=== PATIENT | male | born 1980 | race African-American/Black ===

== ENCOUNTER 2019-06-28 08:24 | Inpatient (IN) ==
[2019-06-28] MEDS ORDERED: amLODIPine 5 MG TABLET PO STA (09:00)
[2019-06-28] MEDS ORDERED: hydrALAZINE 20 MG/1 ML VIAL IV STA ×2 (09:00→09:58)
[2019-06-28 09:17] LABS: Basophils % 0.3 % (0.0-0.8); Eosinophils # 0.2 10*3/uL (0.0-0.87); Eosinophils % 1.9 % (0.00-10.9); Hematocrit 43.2 VOL% (42.0-52.0); Hemoglobin 13.9 GM/DL (14.0-18.0); Immature Granulocytes % 0.9 %; Immature Granulocytes Absolute 0.08 #; Lymphocytes # 1.9 10*3/uL (1.4-4.0); Mean Corpuscular HGB Conc 32.2 GM/DL (32-36); Mean Corpuscular Volume 81.2 FL (87-102); Monocytes % 7.2 % (1.7-12.7); Neutrophils % 67.7 % (38.7-73.9); Platelet Count 217 T/CUMM (130-400); Red Blood Count 5.32 MC/CUMM (3.8-5.5); Red Cell Distribution Width 14.7 % (9.3-17.3); White Blood Count 8.6 T/CUMM (4-12)
[2019-06-28 09:53] LABS: Calcium 8.5 MG/DL (8.5-10.1); Osmolality,Calculated 285.3 MOS/KG (273-304)
[2019-06-28] MEDS ORDERED: METOPROLOL TARTRATE 50 MG TABLET PO STA (09:58)
[2019-06-28] MEDS ORDERED: ONDANSETRON 4 MG/2 ML VIAL IV STA (10:47)
[2019-06-28] MEDS: niCARdipine INJ 25 MG in SODIUM CHLORIDE 0.9% 240 ML IV PRN (12:07)
[2019-06-28] MEDS ORDERED: ONDANSETRON 4 MG/2 ML VIAL IV PRN (13:42)
[2019-06-28] MEDS: FLUTICASONE 50 MCG NASAL SPRAY 16 GM BOTTLE BOTH NARES SCH ×2 (14:42→20:40)
[2019-06-28] MEDS: PANTOPRAZOLE 40 MG TABLET PO SCH (14:42)
[2019-06-28] MEDS: AMOXICILLIN/CLAV 875 MG TABLET PO SCH ×2 (14:42→20:40)
[2019-06-28] MEDS: POTASSIUM CHLORIDE 20 MEQ TABLET PO SCH ×3 (14:42→21:05)
[2019-06-28] MEDS: CHLORTHALIDONE 25 MG TABLET PO SCH (14:54)
[2019-06-28] MEDS: VALSARTAN 80 MG TABLET PO SCH ×2 (17:02→20:40)
[2019-06-28] MEDS: ENOXAPARIN 30 MG/0.3 ML SYRINGE SUBCUT SCH (20:40)
[2019-06-28] MEDS: niCARdipine INJ 50 MG in SODIUM CHLORIDE 0.9% 480 ML IV PRN (23:04)
[2019-06-29] MEDS: niCARdipine INJ 50 MG in SODIUM CHLORIDE 0.9% 480 ML IV PRN ×2 (00:23→09:30)
[2019-06-29] MEDS: POTASSIUM CHLORIDE 20 MEQ TABLET PO SCH (01:20)
[2019-06-29 04:45] LABS: Basophils % 0.2 % (0.0-0.8); Eosinophils # 0.1 10*3/uL (0.0-0.87); Eosinophils % 1.3 % (0.00-10.9); Hematocrit 45.8 VOL% (42.0-52.0); Hemoglobin 14.8 GM/DL (14.0-18.0); Immature Granulocytes % 0.9 %; Lymphocytes # 1.8 10*3/uL (1.4-4.0); Mean Corpuscular HGB Conc 32.3 GM/DL (32-36); Mean Corpuscular Volume 80.9 FL (87-102); Mean Platelet Volume 10.5 FL (9.6-12.0); Monocytes % 6.2 % (1.7-12.7); Neutrophils % 75.4 % (38.7-73.9); Platelet Count 259 T/CUMM (130-400); Red Blood Count 5.66 MC/CUMM (3.8-5.5); Red Cell Distribution Width 14.9 % (9.3-17.3); White Blood Count 11.1 T/CUMM (4-12)
[2019-06-29 05:12] LABS: Risk Ratio 6.62; Thyroid Stimulating Hormone 0.715 uIU/ml (0.358-3.74); VLDL CHOLESTEROL 55.6 MG/DL
[2019-06-29 05:22] LABS: Calcium 9.3 MG/DL (8.5-10.1); Osmolality,Calculated 276.8 MOS/KG (273-304); Troponin I 0.04 NG/ML (0.00-0.045)
[2019-06-29] MEDS: FLUTICASONE 50 MCG NASAL SPRAY 16 GM BOTTLE BOTH NARES SCH ×2 (09:31→20:42)
[2019-06-29] MEDS: CHLORTHALIDONE 25 MG TABLET PO SCH (09:32)
[2019-06-29] MEDS: AMOXICILLIN/CLAV 875 MG TABLET PO SCH ×2 (09:32→20:41)
[2019-06-29] MEDS: VALSARTAN 80 MG TABLET PO SCH ×2 (09:32→20:41)
[2019-06-29] MEDS: amLODIPine 5 MG TABLET PO SCH (09:32)
[2019-06-29] MEDS: PANTOPRAZOLE 40 MG TABLET PO SCH (09:32)
[2019-06-29] MEDS: POTASSIUM CHLORIDE RIDER 10 MEQ in PREMIX 1 EACH IV PRN ×5 (12:21→16:21)
[2019-06-29] MEDS: FUROSEMIDE 40 MG TABLET PO SCH (12:21)
[2019-06-29] MEDS: METOPROLOL TARTRATE 25 MG TABLET PO SCH ×2 (12:21→20:41)
[2019-06-29] MEDS ORDERED: FUROSEMIDE 40 MG/4 ML VIAL IV SCH (16:00)
[2019-06-29] MEDS: niCARdipine INJ 25 MG in SODIUM CHLORIDE 0.9% 240 ML IV PRN (18:21)
[2019-06-29] MEDS: ENOXAPARIN 30 MG/0.3 ML SYRINGE SUBCUT SCH (20:41)
[2019-06-29] MEDS: SIMVASTATIN 20 MG TABLET PO SCH (20:41)
[2019-06-30 04:21] LABS: Basophils % 0.3 % (0.0-0.8); Eosinophils # 0.3 10*3/uL (0.0-0.87); Eosinophils % 3.1 % (0.00-10.9); Hematocrit 46.3 VOL% (42.0-52.0); Hemoglobin 14.6 GM/DL (14.0-18.0); Immature Granulocytes % 1.2 %; Immature Granulocytes Absolute 0.11 #; Lymphocytes # 2.5 10*3/uL (1.4-4.0); Mean Corpuscular HGB Conc 31.5 GM/DL (32-36); Mean Corpuscular Volume 82.7 FL (87-102); Mean Platelet Volume 9.8 FL (9.6-12.0); Neutrophils % 59.4 % (38.7-73.9); Platelet Count 273 T/CUMM (130-400); Red Cell Distribution Width 14.9 % (9.3-17.3); White Blood Count 8.8 T/CUMM (4-12)
[2019-06-30 04:26] LABS: Albumin 2.8 G/DL (3.4-5.0); Bilirubin,Total 0.6 MG/DL (0.2-1.0); Calcium 9.3 MG/DL (8.5-10.1); Osmolality,Calculated 278.8 MOS/KG (273-304); Total Protein 7.3 G/DL (6.4-8.3)
[2019-06-30] MEDS: POTASSIUM CHLORIDE 20 MEQ TABLET PO PRN ×7 (05:35→22:32)
[2019-06-30] MEDS: AMOXICILLIN/CLAV 875 MG TABLET PO SCH ×2 (09:04→20:29)
[2019-06-30] MEDS: METOPROLOL TARTRATE 25 MG TABLET PO SCH (09:04)
[2019-06-30] MEDS: VALSARTAN 80 MG TABLET PO SCH (09:04)
[2019-06-30] MEDS: FUROSEMIDE 40 MG TABLET PO SCH (09:04)
[2019-06-30] MEDS: PANTOPRAZOLE 40 MG TABLET PO SCH (09:04)
[2019-06-30] MEDS: amLODIPine 5 MG TABLET PO SCH (09:04)
[2019-06-30] MEDS: FLUTICASONE 50 MCG NASAL SPRAY 16 GM BOTTLE BOTH NARES SCH ×2 (09:05→20:37)
[2019-06-30] MEDS: carvediloL 6.25 MG TABLET PO SCH ×2 (13:11→20:29)
[2019-06-30] MEDS: ENOXAPARIN 30 MG/0.3 ML SYRINGE SUBCUT SCH (20:29)
[2019-06-30] MEDS: SIMVASTATIN 20 MG TABLET PO SCH (20:37)
[2019-07-01 06:14] LABS: Calcium 9.7 MG/DL (8.5-10.1); Osmolality,Calculated 283.5 MOS/KG (273-304)
[2019-07-01] MEDS ORDERED: metOLazone 2.5 MG TABLET PO SCH (09:00)
[2019-07-01] MEDS: AMOXICILLIN/CLAV 875 MG TABLET PO SCH (09:12)
[2019-07-01] MEDS: FLUTICASONE 50 MCG NASAL SPRAY 16 GM BOTTLE BOTH NARES SCH (09:12)
[2019-07-01] MEDS: PANTOPRAZOLE 40 MG TABLET PO SCH (09:12)
[2019-07-01] MEDS: carvediloL 6.25 MG TABLET PO SCH (09:12)
[2019-07-01 12:00] VITALS: BP 128/94
[2019-07-01] MEDS ORDERED: ENOXAPARIN 40 MG/0.4 ML SYRINGE SUBCUT SCH (21:00)
== END 2019-07-01 17:33 | disposition home or self-care (01) | DRG 305 ==
LOC: N.ED 08:24 → SUATTDRO 12:27 → N.EDINP 12:27 → N.CC 12:58 → N.2E 06-30 14:26
PROVIDERS: ADMIT Internal Medicine; ATTEND Internal Medicine

== ENCOUNTER 2020-03-21 17:35 | Inpatient (IN) ==
[2020-03-21 19:33] LABS: Basophils % 0.3 % (0.0-0.8); Eosinophils # 0.2 10*3/uL (0.0-0.87); Eosinophils % 2.6 % (0.00-10.9); Hematocrit 22.4 VOL% (42.0-52.0); Hemoglobin 6.9 GM/DL (14.0-18.0); Immature Granulocytes % 0.7 %; Immature Granulocytes Absolute 0.05 #; Lymphocytes # 1.4 10*3/uL (1.4-4.0); Lymphocytes % 19.2 % (21.2-54.2); Mean Corpuscular HGB Conc 30.8 GM/DL (32-36); Mean Corpuscular Volume 80.9 FL (87-102); Mean Platelet Volume 11.4 FL (9.6-12.0); Monocytes % 7.8 % (1.7-12.7); Neutrophils % 69.4 % (38.7-73.9); Platelet Count 123 T/CUMM (130-400); Red Blood Count 2.77 MC/CUMM (3.8-5.5); Red Cell Distribution Width 16.1 % (9.3-17.3); White Blood Count 7.4 T/CUMM (4-12)
[2020-03-21 19:52] LABS: Albumin 3.5 G/DL (3.4-5.0); Calcium 9.4 MG/DL (8.5-10.1); Osmolality,Calculated 314.1 MOS/KG (273-304); Total Protein 7.6 G/DL (6.4-8.3)
[2020-03-21] MEDS: niCARdipine INJ 25 MG in SODIUM CHLORIDE 0.9% 240 ML IV PRN ×2 (19:55→22:05)
[2020-03-21 20:35] LABS: INR 1.1; PT Patient Result 11.6 SECS (9.8-11.9)
[2020-03-21] MEDS ORDERED: POTASSIUM CHLORIDE 20 MEQ TABLET PO STA (21:28)
[2020-03-21] MEDS ORDERED: FUROSEMIDE 100 MG/10 ML VIAL IV STA (22:46)
[2020-03-21 23:31] LABS: Hepatitis B Core IgM Quant 0.13 Index; Hepatitis B Surface Ag Quant < 0.10 Index; Hepatitis B Surface Ag Result Negative (Negative); Hepatitis C Virus Ab Quant 0.08 Index; Hepatitis C Virus Ab Result Negative (Negative)
[2020-03-22] MEDS ORDERED: ZALEPLON 5 MG CAPSULE PO PRN (01:06)
[2020-03-22] MEDS ORDERED: CALCIUM CARBONATE CHEW 500 MG TABLET PO PRN (01:06)
[2020-03-22] MEDS ORDERED: ONDANSETRON 4 MG/2 ML VIAL IV PRN (01:06)
[2020-03-22] MEDS: niCARdipine INJ 25 MG in SODIUM CHLORIDE 0.9% 240 ML IV PRN ×3 (01:21→09:06)
[2020-03-22] MEDS ORDERED: ENOXAPARIN 30 MG/0.3 ML SYRINGE SUBCUT SCH (02:00)
[2020-03-22] MEDS: metOLazone 2.5 MG TABLET PO SCH ×2 (02:12→08:31)
[2020-03-22 06:03] LABS: Basophils % 0.3 % (0.0-0.8); Eosinophils # 0.2 10*3/uL (0.0-0.87); Eosinophils % 2.5 % (0.00-10.9); Hematocrit 20.5 VOL% (42.0-52.0); Immature Granulocytes % 1.3 %; Lymphocytes # 1.4 10*3/uL (1.4-4.0); Lymphocytes % 18.6 % (21.2-54.2); Mean Corpuscular HGB Conc 30.7 GM/DL (32-36); Mean Corpuscular Volume 81.7 FL (87-102); Mean Platelet Volume 12.4 FL (9.6-12.0); Monocytes % 8.3 % (1.7-12.7); Platelet Count 137 T/CUMM (130-400); Red Blood Count 2.51 MC/CUMM (3.8-5.5); Red Cell Distribution Width 16.1 % (9.3-17.3); White Blood Count 7.7 T/CUMM (4-12)
[2020-03-22 06:06] LABS: Hemoglobin 6.3 GM/DL (14.0-18.0)
[2020-03-22 06:37] LABS: Calcium 9.2 MG/DL (8.5-10.1); Osmolality,Calculated 312.2 MOS/KG (273-304)
[2020-03-22] MEDS ORDERED: EPOETIN ALFA-EPBX 10,000 UNIT/ML VIAL IV PRN (08:25)
[2020-03-22] MEDS: carvediloL 6.25 MG TABLET PO SCH ×2 (08:31→17:41)
[2020-03-22] MEDS: PANTOPRAZOLE 40 MG TABLET PO SCH (08:31)
[2020-03-22] MEDS ORDERED: ceFAZolin 1,000 MG in SYRINGE 1 EACH IV ONE (08:58)
[2020-03-22] MEDS: SIMVASTATIN 20 MG TABLET PO SCH (22:53)
[2020-03-23 06:34] LABS: Basophils % 0.5 % (0.0-0.8); Eosinophils # 0.2 10*3/uL (0.0-0.87); Eosinophils % 2.7 % (0.00-10.9); Hematocrit 19.9 VOL% (42.0-52.0); Immature Granulocytes % 1.3 %; Lymphocytes # 1.8 10*3/uL (1.4-4.0); Lymphocytes % 22.7 % (21.2-54.2); Mean Corpuscular HGB Conc 30.2 GM/DL (32-36); Mean Corpuscular Volume 82.9 FL (87-102); Mean Platelet Volume 11.5 FL (9.6-12.0); Monocytes % 5.4 % (1.7-12.7); Neutrophils % 67.4 % (38.7-73.9); Platelet Count 194 T/CUMM (130-400); Red Cell Distribution Width 16.3 % (9.3-17.3); White Blood Count 7.8 T/CUMM (4-12)
[2020-03-23] MEDS ORDERED: HEPARIN 5,000 UNIT/1 ML VIAL ONE (06:47)
[2020-03-23] MEDS ORDERED: LIDOCAINE 1%/EPI INJ 20 ML VIAL ONE (06:47)
[2020-03-23] MEDS ORDERED: TISSUE ADHESIVE 1 EACH APPLICATOR TOP ONE (06:47)
[2020-03-23] MEDS ORDERED: BUPIVACAINE MPF 0.25% 30 ML VIAL ONE (06:47)
[2020-03-23] MEDS ORDERED: SODIUM CHLORIDE 0.9% 1,000 ML IV PRN (06:52)
[2020-03-23] MEDS ORDERED: ceFAZolin 1,000 MG in SYRINGE 1 EACH IV ONE (07:00)
[2020-03-23 07:12] LABS: Calcium 8.9 MG/DL (8.5-10.1); Osmolality,Calculated 310.5 MOS/KG (273-304)
[2020-03-23] MEDS: carvediloL 6.25 MG TABLET PO SCH ×2 (09:10→17:16)
[2020-03-23] MEDS: PANTOPRAZOLE 40 MG TABLET PO SCH (09:35)
[2020-03-23] MEDS: metOLazone 2.5 MG TABLET PO SCH (09:35)
[2020-03-23] MEDS ORDERED: MIDAZOLAM 2 MG/2 ML VIAL ONE (11:11)
[2020-03-23] MEDS ORDERED: SODIUM CHLORIDE 0.9% 250 ML IV ONE (11:11)
[2020-03-23] MEDS ORDERED: HEPARIN 10,000 UNIT/10 ML VIAL IV SCH ×2 (11:30→13:45)
[2020-03-23] MEDS: SIMVASTATIN 20 MG TABLET PO SCH (20:00)
[2020-03-24] MEDS: PANTOPRAZOLE 40 MG TABLET PO SCH (08:08)
[2020-03-24] MEDS: carvediloL 6.25 MG TABLET PO SCH ×2 (08:08→17:57)
[2020-03-24] MEDS: metOLazone 2.5 MG TABLET PO SCH (08:08)
[2020-03-24 10:18] LABS: Basophils % 0.2 % (0.0-0.8); Eosinophils # 0.3 10*3/uL (0.0-0.87); Eosinophils % 2.9 % (0.00-10.9); Hematocrit 24.1 VOL% (42.0-52.0); Hemoglobin 7.4 GM/DL (14.0-18.0); Immature Granulocytes % 2.8 %; Immature Granulocytes Absolute 0.29 #; Lymphocytes # 1.4 10*3/uL (1.4-4.0); Lymphocytes % 13.8 % (21.2-54.2); Mean Corpuscular HGB Conc 30.7 GM/DL (32-36); Mean Corpuscular Volume 83.4 FL (87-102); Mean Platelet Volume 11.6 FL (9.6-12.0); Monocytes % 7.9 % (1.7-12.7); NRBC # 0.04 10*3/uL; Neutrophils % 72.4 % (38.7-73.9); Platelet Count 236 T/CUMM (130-400); Red Blood Count 2.89 MC/CUMM (3.8-5.5); White Blood Count 10.2 T/CUMM (4-12)
[2020-03-24 11:44] LABS: Osmolality,Calculated 297.4 MOS/KG (273-304)
[2020-03-24 15:23] LABS: Apearance,Urine Slightly Hazy (Clear); Bacteria,Urine Occasional /HPF (Few); Bilirubin,Urine Negative (Negative); Blood, Urine Negative (Negative); Glucose,Urine (UA) Negative (Negative); Ketones,Urine Negative (Negative); Mucus,Urine Occasional /LPF (Occasional); Nitrite,Urine Negative (Negative); Protein,Urine 100 MG/DL; RBC,Urine 2 /HPF (0-4); Squamous Epithelial Cell,Urine Occasional /HPF (0-10); Urine Color Yellow (Yellow); Urine Specific Gravity 1.011 (1.001-1.035); Urine Urobilinogen < 2.0 EU/DL (0.2-1.0); WBC,Urine 4 /HPF (0-6)
[2020-03-24] MEDS: SIMVASTATIN 20 MG TABLET PO SCH (20:42)
[2020-03-25] MEDS ORDERED: SIMETHICONE CHEW 80 MG TABLET PO PRN (01:56)
[2020-03-25 05:54] LABS: Basophils % 0.3 % (0.0-0.8); Eosinophils # 0.3 10*3/uL (0.0-0.87); Eosinophils % 2.9 % (0.00-10.9); Hematocrit 25.5 VOL% (42.0-52.0); Hemoglobin 7.6 GM/DL (14.0-18.0); Lymphocytes # 1.3 10*3/uL (1.4-4.0); Lymphocytes % 12.6 % (21.2-54.2); Mean Corpuscular HGB Conc 29.8 GM/DL (32-36); Mean Corpuscular Volume 85.9 FL (87-102); Mean Platelet Volume 11.1 FL (9.6-12.0); Monocytes % 8.2 % (1.7-12.7); NRBC # 0.11 10*3/uL; Platelet Count 251 T/CUMM (130-400); Red Blood Count 2.97 MC/CUMM (3.8-5.5); Red Cell Distribution Width 16.3 % (9.3-17.3); White Blood Count 10.2 T/CUMM (4-12)
[2020-03-25 06:22] LABS: Calcium 9.4 MG/DL (8.5-10.1); Osmolality,Calculated 287.7 MOS/KG (273-304)
[2020-03-25] MEDS: PANTOPRAZOLE 40 MG TABLET PO SCH (13:42)
[2020-03-25] MEDS: BISACODYL 5 MG TABLET PO ONE ×2 (13:42→14:57)
[2020-03-25] MEDS: metOLazone 2.5 MG TABLET PO SCH (13:42)
[2020-03-25] MEDS: carvediloL 6.25 MG TABLET PO SCH ×2 (13:42→17:24)
[2020-03-25] MEDS ORDERED: LACTULOSE 20 GM/30 ML UDCUP PO ONE (13:45)
[2020-03-25 16:59] VITALS: BP 166/98
== END 2020-03-25 17:23 | disposition home health service (06) | DRG 291 ==
LOC: SUATTDRO → N.ED 17:35 → SUATTDRO 22:00 → N.EDINP 22:00 → SUPCPDRO 22:00 → N.ICU 03-22 01:01 → N.3E 03-24 16:33
PROVIDERS: ADMIT Internal Medicine; ATTEND Family Medicine

== ENCOUNTER 2020-04-18 11:02 | Observation (INO) ==
[2020-04-18 12:22] LABS: Basophils % 0.6 % (0.0-0.8); Eosinophils # 0.3 10*3/uL (0.0-0.87); Eosinophils % 4.2 % (0.00-10.9); Hematocrit 27.6 VOL% (42.0-52.0); Hemoglobin 8.3 GM/DL (14.0-18.0); Immature Granulocytes % 0.3 %; Immature Granulocytes Absolute 0.02 #; Lymphocytes # 1.7 10*3/uL (1.4-4.0); Lymphocytes % 23.2 % (21.2-54.2); Mean Corpuscular HGB Conc 30.1 GM/DL (32-36); Mean Corpuscular Volume 83.9 FL (87-102); Mean Platelet Volume 9.4 FL (9.6-12.0); Monocytes % 6.6 % (1.7-12.7); Neutrophils % 65.1 % (38.7-73.9); Platelet Count 338 T/CUMM (130-400); Red Blood Count 3.29 MC/CUMM (3.8-5.5); Red Cell Distribution Width 14.2 % (9.3-17.3); White Blood Count 7.1 T/CUMM (4-12)
[2020-04-18] MEDS ORDERED: hydrALAZINE 20 MG/1 ML VIAL IV STA ×2 (12:33→14:05)
[2020-04-18 13:05] LABS: Alanine Aminotransferase 19 U/L (16-61); Alkaline Phosphatase 55 U/L (45-117); Aspartate Amino Transferase 12 U/L (0-37); Bilirubin,Total < 0.39 MG/DL (0.2-1.0); Blood Urea Nitrogen 79 MG/DL (7-18); Calcium 9.9 MG/DL (8.5-10.1); Estimated Glom Filtration Rate 6 ML/MIN; Glucose 85 MG/DL (74-106); Osmolality,Calculated 297.7 MOS/KG (273-304); Total Protein 8.3 G/DL (6.4-8.3)
[2020-04-18] MEDS ORDERED: LABETALOL 20 MG/4 ML SYRINGE IV STA (14:37)
[2020-04-18] MEDS ORDERED: ONDANSETRON 4 MG/2 ML VIAL IV PRN (15:44)
[2020-04-18] MEDS ORDERED: DEXTROSE 10% 250 ML BAG IV PRN (15:44)
[2020-04-18] MEDS ORDERED: GLUCAGON 1 MG VIAL IM PRN (15:44)
[2020-04-18] MEDS ORDERED: EPOETIN ALFA-EPBX 10,000 UNIT/ML VIAL IV PRN (17:02)
[2020-04-18] MEDS ORDERED: CALCIUM CARBONATE CHEW 500 MG TABLET PO PRN (17:02)
[2020-04-18] MEDS: hydrALAZINE 20 MG/1 ML VIAL IV PRN (19:00)
[2020-04-18] MEDS: ACETAMINOPHEN 325 MG TABLET PO PRN (20:20)
[2020-04-18] MEDS: carvediloL 6.25 MG TABLET PO SCH (20:20)
[2020-04-18] MEDS: SIMVASTATIN 20 MG TABLET PO SCH (20:20)
[2020-04-19] MEDS: ACETAMINOPHEN 325 MG TABLET PO PRN ×3 (01:16→17:20)
[2020-04-19 06:19] LABS: Basophils % 0.4 % (0.0-0.8); Eosinophils # 0.3 10*3/uL (0.0-0.87); Eosinophils % 3.8 % (0.00-10.9); Hemoglobin 8.2 GM/DL (14.0-18.0); Immature Granulocytes % 0.3 %; Immature Granulocytes Absolute 0.02 #; Lymphocytes # 1.3 10*3/uL (1.4-4.0); Lymphocytes % 17.1 % (21.2-54.2); Mean Corpuscular HGB Conc 30.4 GM/DL (32-36); Mean Corpuscular Volume 82.8 FL (87-102); Neutrophils % 71.4 % (38.7-73.9); Platelet Count 322 T/CUMM (130-400); Red Blood Count 3.26 MC/CUMM (3.8-5.5); Red Cell Distribution Width 14.5 % (9.3-17.3); White Blood Count 7.5 T/CUMM (4-12)
[2020-04-19] MEDS: hydrALAZINE 20 MG/1 ML VIAL IV PRN ×2 (06:32→12:30)
[2020-04-19 06:39] LABS: Calcium 10.2 MG/DL (8.5-10.1)
[2020-04-19] MEDS: PANTOPRAZOLE 20 MG TABLET PO SCH (09:20)
[2020-04-19] MEDS: metOLazone 2.5 MG TABLET PO SCH (09:20)
[2020-04-19] MEDS: carvediloL 6.25 MG TABLET PO SCH ×2 (09:20→17:20)
[2020-04-19] MEDS ORDERED: HEPARIN 10,000 UNIT/10 ML VIAL IV SCH (14:45)
[2020-04-19] MEDS ORDERED: ALTEPLASE 2 MG VIAL IV ONE ×2 (15:00)
[2020-04-19] MEDS: SIMVASTATIN 20 MG TABLET PO SCH (21:13)
[2020-04-20 06:06] LABS: Basophils % 0.4 % (0.0-0.8); Eosinophils # 0.2 10*3/uL (0.0-0.87); Eosinophils % 2.9 % (0.00-10.9); Hematocrit 30.1 VOL% (42.0-52.0); Hemoglobin 9.1 GM/DL (14.0-18.0); Immature Granulocytes % 0.5 %; Immature Granulocytes Absolute 0.04 #; Lymphocytes # 1.5 10*3/uL (1.4-4.0); Lymphocytes % 18.5 % (21.2-54.2); Mean Corpuscular HGB Conc 30.2 GM/DL (32-36); Mean Corpuscular Volume 83.4 FL (87-102); Mean Platelet Volume 9.4 FL (9.6-12.0); Monocytes % 6.8 % (1.7-12.7); Neutrophils % 70.9 % (38.7-73.9); Platelet Count 336 T/CUMM (130-400); Red Blood Count 3.61 MC/CUMM (3.8-5.5); Red Cell Distribution Width 14.6 % (9.3-17.3); White Blood Count 8.2 T/CUMM (4-12)
[2020-04-20 06:15] LABS: Calcium 10.1 MG/DL (8.5-10.1); Osmolality,Calculated 294.1 MOS/KG (273-304)
[2020-04-20] MEDS ORDERED: SODIUM CHLORIDE 0.9% 250 ML IV SCH (07:00)
[2020-04-20] MEDS ORDERED: ceFAZolin 1,000 MG VIAL ONE (07:38)
[2020-04-20] MEDS ORDERED: propofoL 200 MG/20 ML VIAL IV ONE (08:07)
[2020-04-20] MEDS ORDERED: ONDANSETRON 4 MG/2 ML VIAL ONE (08:08)
[2020-04-20] MEDS ORDERED: DEXAMETHASONE 4 MG/1 ML VIAL ONE (08:08)
[2020-04-20] MEDS ORDERED: SEVOFLURANE 1 UNIT/15 MINUTE INH ONE (08:08)
[2020-04-20] MEDS ORDERED: MIDAZOLAM 2 MG/2 ML VIAL ONE (08:08)
[2020-04-20] MEDS ORDERED: fentaNYL 100 MCG/2 ML VIAL ONE (08:08)
[2020-04-20] MEDS ORDERED: LIDOCAINE 2% 5 ML VIAL ONE (08:08)
[2020-04-20 08:56] VITALS: BP 157/90
[2020-04-20] MEDS: PANTOPRAZOLE 20 MG TABLET PO SCH (13:56)
[2020-04-20] MEDS: metOLazone 2.5 MG TABLET PO SCH (13:56)
[2020-04-20] MEDS: carvediloL 6.25 MG TABLET PO SCH (13:56)
[2020-04-21] MEDS ORDERED: ceFAZolin 1,000 MG in SYRINGE 1 EACH IV ONE (06:30)
== END 2020-04-20 15:15 | disposition home or self-care (01) ==
LOC: N.ED 11:02 → N.EDINP 11:02 → N.3E 17:39
PROVIDERS: ADMIT Internal Medicine; ATTEND Internal Medicine

== ENCOUNTER 2020-12-28 06:12 | Observation (INO) ==
[2020-12-23 12:26] LABS: Basophils % 0.3 % (0.0-0.8); Eosinophils # 0.1 10*3/uL (0.0-0.87); Eosinophils % 1.7 % (0.00-10.9); Hematocrit 32.6 VOL% (42.0-52.0); Hemoglobin 10.7 GM/DL (14.0-18.0); Immature Granulocytes % 0.8 %; Immature Granulocytes Absolute 0.06 #; Lymphocytes # 1.9 10*3/uL (1.4-4.0); Lymphocytes % 23.7 % (21.2-54.2); Mean Corpuscular HGB Conc 32.8 GM/DL (32-36); Mean Corpuscular Volume 84.9 FL (87-102); Mean Platelet Volume 9.7 FL (9.6-12.0); Monocytes % 8.1 % (1.7-12.7); Neutrophils % 65.4 % (38.7-73.9); Platelet Count 291 T/CUMM (130-400); Red Blood Count 3.84 MC/CUMM (3.8-5.5); White Blood Count 7.8 T/CUMM (4-12)
[2020-12-23 13:02] LABS: Calcium 10.3 MG/DL (8.5-10.1); Osmolality,Calculated 285.8 MOS/KG (273-304); Potassium 3.6 MMOL/L (3.5-5.1)
[2020-12-28] MEDS ORDERED: ceFAZolin 1,000 MG in SYRINGE 1 EACH IV ONE (06:30)
[2020-12-28 06:44] LABS: Hematocrit 32.5 VOL% (42.0-52.0); Hemoglobin 10.6 GM/DL (14.0-18.0)
[2020-12-28] MEDS ORDERED: FAMOTIDINE 20 MG TABLET PO ONE (06:55)
[2020-12-28] MEDS ORDERED: DIAZEPAM 5 MG TABLET PO ONE (06:55)
[2020-12-28] MEDS ORDERED: SODIUM CHLORIDE 0.9% 250 ML IV SCH (07:00)
[2020-12-28] MEDS ORDERED: BUPIVACAINE MPF 0.25% 30 ML VIAL ONE (14:02)
[2020-12-28] MEDS ORDERED: TISSUE ADHESIVE 1 EACH APPLICATOR TOP ONE (14:02)
[2020-12-28] MEDS ORDERED: LIDOCAINE 1% 20 ML VIAL ONE (14:02)
[2020-12-28] MEDS ORDERED: fentaNYL 100 MCG/2 ML VIAL ONE ×2 (14:08→15:04)
[2020-12-28] MEDS ORDERED: MIDAZOLAM 2 MG/2 ML VIAL ONE (14:09)
[2020-12-28] MEDS ORDERED: SEVOFLURANE 1 UNIT/15 MINUTE INH ONE ×8 (14:11→16:30)
[2020-12-28] MEDS ORDERED: ROCURONIUM 50 MG/5 ML VIAL IV ONE (14:14)
[2020-12-28] MEDS ORDERED: ONDANSETRON 4 MG/2 ML VIAL ONE (14:14)
[2020-12-28] MEDS ORDERED: LIDOCAINE 2% 5 ML VIAL ONE (14:14)
[2020-12-28] MEDS ORDERED: propofoL 200 MG/20 ML VIAL IV ONE (14:14)
[2020-12-28] MEDS ORDERED: SUCCINYLCHOLINE 200 MG/10 ML VIAL ONE (14:29)
[2020-12-28] MEDS ORDERED: PHENYLEPHRINE 1 MG/10 ML SYRINGE IV ONE (15:12)
[2020-12-28] MEDS ORDERED: DEXAMETHASONE 4 MG/1 ML VIAL ONE (15:13)
[2020-12-28] MEDS ORDERED: ACETAMINOPHEN 1,000 MG/100 ML VIAL IV ONE (15:13)
[2020-12-28] MEDS ORDERED: SODIUM CHLORIDE 0.9% 250 ML IV ONE ×2 (15:23→16:25)
[2020-12-28] MEDS ORDERED: NEOSTIGMINE 10 MG/10 ML VIAL ONE (15:40)
[2020-12-28] MEDS ORDERED: GLYCOPYRROLATE 0.4 MG/2 ML VIAL ONE (15:40)
[2020-12-28] MEDS ORDERED: ONDANSETRON 4 MG/2 ML VIAL IV PRN ×2 (16:46→17:17)
[2020-12-28] MEDS ORDERED: ACETAMINOPHEN 325 MG TABLET PO PRN (16:46)
[2020-12-28] MEDS: HYDROmorphone 2 MG/1 ML VIAL IV PRN ×4 (17:14→20:54)
[2020-12-28 19:55] LABS: Calcium 9.7 MG/DL (8.5-10.1); Potassium 4.3 MMOL/L (3.5-5.1)
[2020-12-28] MEDS ORDERED: CALCIUM CARBONATE CHEW 500 MG TABLET PO PRN (21:00)
[2020-12-28] MEDS: CALCIUM CARBONATE CHEW 500 MG TABLET PO SCH (22:30)
[2020-12-28] MEDS: LACTATED RINGERS 1,000 ML IV SCH (22:32)
[2020-12-29] MEDS: CALCIUM CARBONATE CHEW 500 MG TABLET PO SCH ×4 (00:45→13:04)
[2020-12-29 00:47] LABS: Basophils % 0.1 % (0.0-0.8); Hematocrit 29.7 VOL% (42.0-52.0); Hemoglobin 9.4 GM/DL (14.0-18.0); Immature Granulocytes % 0.4 %; Immature Granulocytes Absolute 0.03 #; Lymphocytes # 0.9 10*3/uL (1.4-4.0); Mean Corpuscular HGB Conc 31.6 GM/DL (32-36); Mean Corpuscular Volume 87.9 FL (87-102); Mean Platelet Volume 9.4 FL (9.6-12.0); Monocytes % 3.2 % (1.7-12.7); Neutrophils % 86.3 % (38.7-73.9); Platelet Count 246 T/CUMM (130-400); Red Blood Count 3.38 MC/CUMM (3.8-5.5); Red Cell Distribution Width 15.5 % (9.3-17.3); White Blood Count 8.5 T/CUMM (4-12)
[2020-12-29] MEDS: HYDROmorphone 2 MG/1 ML VIAL IV PRN (00:53)
[2020-12-29 01:05] LABS: Calcium 8.6 MG/DL (8.5-10.1); Osmolality,Calculated 283.8 MOS/KG (273-304); Potassium 4.6 MMOL/L (3.5-5.1)
[2020-12-29] MEDS: LACTATED RINGERS 1,000 ML IV SCH (08:11)
[2020-12-29] MEDS ORDERED: EPOETIN ALFA-EPBX 2,000 UNIT/ML VIAL IV PRN (08:35)
[2020-12-29] MEDS: metOLazone 2.5 MG TABLET PO SCH (09:36)
[2020-12-29] MEDS: carvediloL 6.25 MG TABLET PO SCH ×2 (09:36→23:19)
[2020-12-29] MEDS: cloNIDine 0.1 MG TABLET PO SCH ×2 (09:37→23:19)
[2020-12-29] MEDS: PANTOPRAZOLE 40 MG TABLET PO SCH (09:37)
[2020-12-29] MEDS ORDERED: CALCIUM CARBONATE CHEW 500 MG TABLET PO ONE (12:48)
[2020-12-29 14:18] LABS: Calcium 7.5 MG/DL (8.5-10.1)
[2020-12-29] MEDS ORDERED: CALCIUM GLUCONATE 1,000 MG in SODIUM CHLORIDE 0.9% 100 ML IV ONE (16:16)
[2020-12-29] MEDS: CALCIUM (CARBONATE) 500 MG TABLET PO SCH ×2 (16:17→23:18)
[2020-12-29] MEDS ORDERED: SIMVASTATIN 20 MG TABLET PO SCH (21:00)
[2020-12-30] MEDS: CALCIUM (CARBONATE) 500 MG TABLET PO SCH ×2 (05:43→09:30)
[2020-12-30] MEDS: cloNIDine 0.1 MG TABLET PO SCH (09:30)
[2020-12-30] MEDS: carvediloL 6.25 MG TABLET PO SCH (09:30)
[2020-12-30] MEDS: metOLazone 2.5 MG TABLET PO SCH (09:30)
[2020-12-30] MEDS: PANTOPRAZOLE 40 MG TABLET PO SCH (09:30)
[2020-12-30 12:47] VITALS: BP 135/83
== END 2020-12-30 13:00 | disposition home or self-care (01) ==
LOC: N.OR 06:12 → N.4E 06:12 → N.SDSINP 06:15 → N.4E 18:27
PROVIDERS: ADMIT Student in an Organized Health Care Education/Training Program; ATTEND Student in an Organized Health Care Education/Training Program

== ENCOUNTER 2021-10-28 12:38 | Inpatient (IN) ==
[2021-10-28 13:23] LABS: Basophils % 0.3 % (0.0-0.8); Eosinophils % 0.2 % (0.00-10.9); Hematocrit 32.9 VOL% (42.0-52.0); Hemoglobin 10.2 GM/DL (14.0-18.0); Immature Granulocytes % 3.1 %; Immature Granulocytes Absolute 0.18 #; Lymphocytes # 1.2 10*3/uL (1.4-4.0); Lymphocytes % 20.9 % (21.2-54.2); Mean Corpuscular Volume 92.9 FL (87-102); Mean Platelet Volume 10.1 FL (9.6-12.0); Monocytes % 7.9 % (1.7-12.7); NRBC # 0.02 10*3/uL; Neutrophils % 67.6 % (38.7-73.9); Platelet Count 348 T/CUMM (130-400); Red Blood Count 3.54 MC/CUMM (3.8-5.5); White Blood Count 5.8 T/CUMM (4-12)
[2021-10-28] MEDS ORDERED: cefTRIAXone 1,000 MG in SODIUM CHLORIDE 0.9% 100 ML IV STA (13:49)
[2021-10-28] MEDS ORDERED: AZITHROMYCIN INJ 500 MG in SODIUM CHLORIDE 0.9% 250 ML IV STA (13:49)
[2021-10-28 13:54] LABS: Albumin 3.2 G/DL (3.4-5.0); Bilirubin,Total 0.6 MG/DL (0.20-1.00); Calcium 9.1 MG/DL (8.5-10.1); Potassium 4.3 MMOL/L (3.5-5.1); Total Protein 7.7 G/DL (6.4-8.2)
[2021-10-28] MEDS ORDERED: DEXAMETHASONE 4 MG/1 ML VIAL IV STA (13:57)
[2021-10-28 14:08] LABS: ABG Base Excess 2.9 MMOL/L (-2.5-2.5); ABG HCO3 27.3 MMOL/L (20-26); ABG Oxygen Saturation 65.4 % (95-100); ABG PH 7.441 (7.35-7.45); ABG TCO2 28.5 MMOL/L (23-27); Allen Test Positive
[2021-10-28 14:11] LABS: ABG PO2 35.2 MM HG (80-95)
[2021-10-28 14:13] LABS: Ferritin 12626.8 ng/mL (26-388)
[2021-10-28] MEDS ORDERED: GLUCAGON 1 MG VIAL IM PRN (14:53)
[2021-10-28] MEDS ORDERED: ONDANSETRON 4 MG/2 ML VIAL IV PRN (14:53)
[2021-10-28] MEDS ORDERED: guaiFENesin/DM ER 600-30 MG TABLET PO PRN (14:53)
[2021-10-28] MEDS ORDERED: DEXTROSE 50% 25 GM/50 ML SYRINGE IV PRN (15:04)
[2021-10-28] MEDS: HEPARIN 5,000 UNIT/1 ML VIAL SUBCUT SCH ×2 (15:08→21:05)
[2021-10-28] MEDS: BENZONATATE 100 MG CAPSULE PO SCH (21:05)
[2021-10-28] MEDS: ASCORBIC ACID 500 MG TABLET PO SCH (21:05)
[2021-10-28] MEDS: FAMOTIDINE 20 MG TABLET PO SCH (21:05)
[2021-10-29 05:32] LABS: Basophils % 0.2 % (0.0-0.8); Hematocrit 34.6 VOL% (42.0-52.0); Hemoglobin 10.8 GM/DL (14.0-18.0); Immature Granulocytes % 7.7 %; Immature Granulocytes Absolute 0.31 #; Lymphocytes # 0.8 10*3/uL (1.4-4.0); Lymphocytes % 19.8 % (21.2-54.2); Mean Corpuscular HGB Conc 31.2 GM/DL (32-36); Mean Corpuscular Volume 92.8 FL (87-102); Monocytes % 9.7 % (1.7-12.7); Neutrophils % 62.6 % (38.7-73.9); Platelet Count 347 T/CUMM (130-400); Red Blood Count 3.73 MC/CUMM (3.8-5.5); Red Cell Distribution Width 16.9 % (9.3-17.3)
[2021-10-29 05:51] LABS: Albumin 3.2 G/DL (3.4-5.0); Bilirubin,Total 0.8 MG/DL (0.20-1.00); Calcium 10.1 MG/DL (8.5-10.1); Osmolality,Calculated 293.8 MOS/KG (273-304); Potassium 4.4 MMOL/L (3.5-5.1); Total Protein 8.8 G/DL (6.4-8.2)
[2021-10-29 06:11] LABS: Band Neutrophils 1 % (0-10); Hypochromia Slight; Lymphocytes 15 % (20-55); Microcytosis Slight; Platelet Estimate Adequate; Segmented Neutrophils 71 % (50-85); Total Cells Counted 100
[2021-10-29] MEDS: HEPARIN 5,000 UNIT/1 ML VIAL SUBCUT SCH ×4 (06:20→22:49)
[2021-10-29] MEDS: ACETAMINOPHEN 325 MG TABLET PO PRN (08:00)
[2021-10-29] MEDS ORDERED: DEXAMETHASONE 4 MG TABLET PO SCH (09:00)
[2021-10-29] MEDS ORDERED: PANTOPRAZOLE 40 MG TABLET PO SCH (09:00)
[2021-10-29] MEDS: FAMOTIDINE 20 MG TABLET PO SCH ×2 (09:20→20:20)
[2021-10-29] MEDS: ASCORBIC ACID 500 MG TABLET PO SCH ×2 (09:20→20:20)
[2021-10-29] MEDS: DEXAMETHASONE 4 MG TABLET PO SCH (09:20)
[2021-10-29] MEDS: CHOLECALCIFEROL 1,000 UNIT TABLET PO SCH (09:20)
[2021-10-29] MEDS: CETIRIZINE 10 MG TABLET PO SCH (09:20)
[2021-10-29] MEDS: AZITHROMYCIN INJ 500 MG in SODIUM CHLORIDE 0.9% 250 ML IV SCH (09:20)
[2021-10-29] MEDS: ZINC GLUCONATE 50 MG TABLET PO SCH (09:20)
[2021-10-29] MEDS: BENZONATATE 100 MG CAPSULE PO SCH ×3 (09:20→20:20)
[2021-10-29] MEDS: hydrALAZINE 20 MG/1 ML VIAL IV PRN ×2 (09:21→16:21)
[2021-10-29] MEDS: cefTRIAXone 1,000 MG in SODIUM CHLORIDE 0.9% 100 ML IV SCH (10:19)
[2021-10-29] MEDS ORDERED: BENZONATATE 100 MG CAPSULE PO PRN (10:27)
[2021-10-29] MEDS: carvediloL 6.25 MG TABLET PO SCH ×2 (11:06→20:20)
[2021-10-29] MEDS: MULTIVITAMIN (BEROCCA) TABLET PO SCH (11:06)
[2021-10-29] MEDS: metOLazone 2.5 MG TABLET PO SCH (11:06)
[2021-10-29] MEDS: cloNIDine 0.1 MG TABLET PO SCH ×2 (11:06→20:20)
[2021-10-29] MEDS: IPRATROPIUM 0.06% NASAL SPRAY 15 ML BOTTLE BOTH NARES SCH ×3 (12:08→20:20)
[2021-10-29] MEDS: SEVELAMER CARBONATE 800 MG TABLET PO SCH ×2 (12:08→16:21)
[2021-10-29] MEDS: SIMVASTATIN 20 MG TABLET PO SCH (20:20)
[2021-10-30] MEDS: HEPARIN 5,000 UNIT/1 ML VIAL SUBCUT SCH ×3 (08:20→23:19)
[2021-10-30] MEDS: DEXAMETHASONE 4 MG TABLET PO SCH (08:21)
[2021-10-30] MEDS: CETIRIZINE 10 MG TABLET PO SCH (08:21)
[2021-10-30] MEDS: CHOLECALCIFEROL 1,000 UNIT TABLET PO SCH (08:21)
[2021-10-30] MEDS: ASCORBIC ACID 500 MG TABLET PO SCH ×2 (08:21→20:13)
[2021-10-30] MEDS: MULTIVITAMIN (BEROCCA) TABLET PO SCH (08:21)
[2021-10-30] MEDS: carvediloL 6.25 MG TABLET PO SCH ×2 (08:22→20:13)
[2021-10-30] MEDS: SEVELAMER CARBONATE 800 MG TABLET PO SCH ×3 (08:22→17:30)
[2021-10-30] MEDS: FAMOTIDINE 20 MG TABLET PO SCH ×2 (08:22→20:13)
[2021-10-30] MEDS: BENZONATATE 100 MG CAPSULE PO SCH ×3 (08:22→20:13)
[2021-10-30] MEDS: ZINC GLUCONATE 50 MG TABLET PO SCH (08:22)
[2021-10-30] MEDS: metOLazone 2.5 MG TABLET PO SCH (08:22)
[2021-10-30] MEDS: IPRATROPIUM 0.06% NASAL SPRAY 15 ML BOTTLE BOTH NARES SCH ×4 (08:30→20:13)
[2021-10-30] MEDS: AZITHROMYCIN INJ 500 MG in SODIUM CHLORIDE 0.9% 250 ML IV SCH (08:33)
[2021-10-30] MEDS: cloNIDine 0.1 MG TABLET PO SCH ×2 (08:33→20:13)
[2021-10-30 09:31] LABS: Basophils % 0.2 % (0.0-0.8); Hematocrit 32.6 VOL% (42.0-52.0); Hemoglobin 10.3 GM/DL (14.0-18.0); Immature Granulocytes % 5.7 %; Lymphocytes # 1.2 10*3/uL (1.4-4.0); Lymphocytes % 13.6 % (21.2-54.2); Mean Corpuscular HGB Conc 31.6 GM/DL (32-36); Mean Corpuscular Volume 91.1 FL (87-102); Monocytes % 8.8 % (1.7-12.7); NRBC # 0.02 10*3/uL; Neutrophils % 71.7 % (38.7-73.9); Platelet Count 394 T/CUMM (130-400); Red Blood Count 3.58 MC/CUMM (3.8-5.5); Red Cell Distribution Width 16.5 % (9.3-17.3); White Blood Count 8.8 T/CUMM (4-12)
[2021-10-30 09:51] LABS: Band Neutrophils 2 % (0-10); Hypochromia 1+; Lymphocytes 11 % (20-55); Microcytosis 1+; Platelet Estimate Adequate; Segmented Neutrophils 77 % (50-85); Total Cells Counted 100
[2021-10-30 09:52] LABS: Osmolality,Calculated 308.7 MOS/KG (273-304); Potassium 4.2 MMOL/L (3.5-5.1)
[2021-10-30 09:59] LABS: ABG Base Excess -4.2 MMOL/L (-2.5-2.5); ABG HCO3 20.9 MMOL/L (20-26); ABG Oxygen Saturation 96.5 % (95-100); ABG PCO2 34.6 MM HG (35-48); ABG PH 7.378 (7.35-7.45); ABG TCO2 18.5 MMOL/L (23-27); Allen Test Positive; Pt O2 Delivery Device Other
[2021-10-30] MEDS: cefTRIAXone 1,000 MG in SODIUM CHLORIDE 0.9% 100 ML IV SCH (10:33)
[2021-10-30] MEDS: MELATONIN 3 MG TABLET PO PRN (20:13)
[2021-10-30] MEDS: SIMVASTATIN 20 MG TABLET PO SCH (20:13)
[2021-10-31 05:46] LABS: Basophils % 0.2 % (0.0-0.8); Hematocrit 30.8 VOL% (42.0-52.0); Hemoglobin 9.6 GM/DL (14.0-18.0); Immature Granulocytes % 7.7 %; Immature Granulocytes Absolute 0.71 #; Lymphocytes # 1.2 10*3/uL (1.4-4.0); Lymphocytes % 13.5 % (21.2-54.2); Mean Corpuscular HGB Conc 31.2 GM/DL (32-36); Mean Corpuscular Volume 92.5 FL (87-102); Mean Platelet Volume 10.5 FL (9.6-12.0); Monocytes % 6.8 % (1.7-12.7); NRBC # 0.03 10*3/uL; Neutrophils % 71.8 % (38.7-73.9); Platelet Count 367 T/CUMM (130-400); Red Blood Count 3.33 MC/CUMM (3.8-5.5); Red Cell Distribution Width 16.6 % (9.3-17.3); White Blood Count 9.2 T/CUMM (4-12)
[2021-10-31] MEDS: HEPARIN 5,000 UNIT/1 ML VIAL SUBCUT SCH ×3 (06:03→23:28)
[2021-10-31 06:17] LABS: Band Neutrophils 3 % (0-10); Lymphocytes 16 % (20-55); Platelet Estimate Normal; Segmented Neutrophils 77 % (50-85); Total Cells Counted 100
[2021-10-31 06:18] LABS: Hypochromia Slight
[2021-10-31 06:32] LABS: Osmolality,Calculated 314.7 MOS/KG (273-304); Potassium 4.6 MMOL/L (3.5-5.1)
[2021-10-31 06:52] LABS: Ferritin 7151.5 ng/mL (26-388)
[2021-10-31] MEDS: CHOLECALCIFEROL 1,000 UNIT TABLET PO SCH (08:45)
[2021-10-31] MEDS: MULTIVITAMIN (BEROCCA) TABLET PO SCH (08:45)
[2021-10-31] MEDS: SEVELAMER CARBONATE 800 MG TABLET PO SCH ×3 (08:45→16:37)
[2021-10-31] MEDS: ASCORBIC ACID 500 MG TABLET PO SCH ×2 (08:45→20:11)
[2021-10-31] MEDS: DEXAMETHASONE 4 MG TABLET PO SCH (08:45)
[2021-10-31] MEDS: FAMOTIDINE 20 MG TABLET PO SCH ×2 (08:46→20:11)
[2021-10-31] MEDS: cloNIDine 0.1 MG TABLET PO SCH ×2 (08:46→20:11)
[2021-10-31] MEDS: ZINC GLUCONATE 50 MG TABLET PO SCH (08:46)
[2021-10-31] MEDS: carvediloL 6.25 MG TABLET PO SCH ×2 (08:46→20:11)
[2021-10-31] MEDS: CETIRIZINE 10 MG TABLET PO SCH (08:46)
[2021-10-31] MEDS: metOLazone 2.5 MG TABLET PO SCH (08:46)
[2021-10-31] MEDS: BENZONATATE 100 MG CAPSULE PO SCH ×3 (08:46→20:11)
[2021-10-31] MEDS: IPRATROPIUM 0.06% NASAL SPRAY 15 ML BOTTLE BOTH NARES SCH ×4 (08:47→20:12)
[2021-10-31] MEDS: AZITHROMYCIN INJ 500 MG in SODIUM CHLORIDE 0.9% 250 ML IV SCH (09:08)
[2021-10-31] MEDS: cefTRIAXone 1,000 MG in SODIUM CHLORIDE 0.9% 100 ML IV SCH (10:32)
[2021-10-31] MEDS: SIMVASTATIN 20 MG TABLET PO SCH (20:11)
[2021-11-01 05:24] LABS: Basophils % 0.2 % (0.0-0.8); Hematocrit 30.6 VOL% (42.0-52.0); Hemoglobin 9.6 GM/DL (14.0-18.0); Immature Granulocytes % 11.1 %; Immature Granulocytes Absolute 1.14 #; Lymphocytes # 1.2 10*3/uL (1.4-4.0); Lymphocytes % 11.2 % (21.2-54.2); Mean Corpuscular HGB Conc 31.4 GM/DL (32-36); Mean Corpuscular Volume 92.4 FL (87-102); Mean Platelet Volume 10.6 FL (9.6-12.0); Monocytes % 9.8 % (1.7-12.7); NRBC # 0.03 10*3/uL; Neutrophils % 67.7 % (38.7-73.9); Platelet Count 351 T/CUMM (130-400); Red Blood Count 3.31 MC/CUMM (3.8-5.5); Red Cell Distribution Width 16.5 % (9.3-17.3); White Blood Count 10.3 T/CUMM (4-12)
[2021-11-01 05:34] LABS: Calcium 9.9 MG/DL (8.5-10.1); Potassium 4.1 MMOL/L (3.5-5.1)
[2021-11-01 05:59] LABS: Band Neutrophils 1 % (0-10); Hypochromia 1+; Lymphocytes 7 % (20-55); Metamyelocytes 2 %; Microcytosis 1+; Myelocytes 4 %; Ovalocytes Few; Segmented Neutrophils 73 % (50-85); Total Cells Counted 100
[2021-11-01 06:00] LABS: Platelet Estimate Normal
[2021-11-01] MEDS: HEPARIN 5,000 UNIT/1 ML VIAL SUBCUT SCH ×3 (06:09→23:05)
[2021-11-01] MEDS: DEXAMETHASONE 4 MG TABLET PO SCH (08:13)
[2021-11-01] MEDS: ZINC GLUCONATE 50 MG TABLET PO SCH (08:13)
[2021-11-01] MEDS: ASCORBIC ACID 500 MG TABLET PO SCH ×2 (08:14→20:10)
[2021-11-01] MEDS: cloNIDine 0.1 MG TABLET PO SCH ×2 (08:14→20:10)
[2021-11-01] MEDS: CETIRIZINE 10 MG TABLET PO SCH (08:14)
[2021-11-01] MEDS: CHOLECALCIFEROL 1,000 UNIT TABLET PO SCH (08:14)
[2021-11-01] MEDS: FAMOTIDINE 20 MG TABLET PO SCH ×2 (08:14→20:10)
[2021-11-01] MEDS: carvediloL 6.25 MG TABLET PO SCH ×2 (08:14→20:10)
[2021-11-01] MEDS: MULTIVITAMIN (BEROCCA) TABLET PO SCH (08:14)
[2021-11-01] MEDS: metOLazone 2.5 MG TABLET PO SCH (08:14)
[2021-11-01] MEDS: BENZONATATE 100 MG CAPSULE PO SCH ×3 (08:15→20:10)
[2021-11-01] MEDS: SEVELAMER CARBONATE 800 MG TABLET PO SCH ×3 (08:15→17:55)
[2021-11-01] MEDS: IPRATROPIUM 0.06% NASAL SPRAY 15 ML BOTTLE BOTH NARES SCH ×4 (08:35→20:10)
[2021-11-01] MEDS: AZITHROMYCIN INJ 500 MG in SODIUM CHLORIDE 0.9% 250 ML IV SCH (08:35)
[2021-11-01] MEDS: cefTRIAXone 1,000 MG in SODIUM CHLORIDE 0.9% 100 ML IV SCH (09:43)
[2021-11-01] MEDS: ACETAMINOPHEN 325 MG TABLET PO PRN ×2 (09:53→21:50)
[2021-11-01] MEDS: SIMVASTATIN 20 MG TABLET PO SCH (20:10)
[2021-11-01] MEDS: MELATONIN 3 MG TABLET PO PRN (20:10)
[2021-11-02] MEDS: HEPARIN 5,000 UNIT/1 ML VIAL SUBCUT SCH ×3 (06:40→23:06)
[2021-11-02] MEDS: FAMOTIDINE 20 MG TABLET PO SCH ×2 (08:37→20:28)
[2021-11-02] MEDS: cloNIDine 0.1 MG TABLET PO SCH ×2 (08:37→20:28)
[2021-11-02] MEDS: CHOLECALCIFEROL 1,000 UNIT TABLET PO SCH (08:37)
[2021-11-02] MEDS: ASCORBIC ACID 500 MG TABLET PO SCH ×2 (08:37→20:28)
[2021-11-02] MEDS: MULTIVITAMIN (BEROCCA) TABLET PO SCH (08:37)
[2021-11-02] MEDS: CETIRIZINE 10 MG TABLET PO SCH (08:37)
[2021-11-02] MEDS: BENZONATATE 100 MG CAPSULE PO SCH ×3 (08:37→20:27)
[2021-11-02] MEDS: SEVELAMER CARBONATE 800 MG TABLET PO SCH ×3 (08:37→16:17)
[2021-11-02] MEDS: metOLazone 2.5 MG TABLET PO SCH (08:37)
[2021-11-02] MEDS: ZINC GLUCONATE 50 MG TABLET PO SCH (08:37)
[2021-11-02] MEDS: carvediloL 6.25 MG TABLET PO SCH ×2 (08:37→20:28)
[2021-11-02] MEDS: DEXAMETHASONE 4 MG TABLET PO SCH (08:38)
[2021-11-02] MEDS: AZITHROMYCIN INJ 500 MG in SODIUM CHLORIDE 0.9% 250 ML IV SCH (09:12)
[2021-11-02] MEDS: cefTRIAXone 1,000 MG in SODIUM CHLORIDE 0.9% 100 ML IV SCH (11:12)
[2021-11-02] MEDS: hydrALAZINE 20 MG/1 ML VIAL IV PRN (13:48)
[2021-11-02] MEDS: ACETAMINOPHEN 325 MG TABLET PO PRN (14:37)
[2021-11-02] MEDS: SIMVASTATIN 20 MG TABLET PO SCH (20:28)
[2021-11-02] MEDS ORDERED: METHOCARBAMOL 750 MG TABLET PO SCH (21:00)
[2021-11-02] MEDS: MELATONIN 3 MG TABLET PO PRN (23:11)
[2021-11-03] MEDS: hydrALAZINE 20 MG/1 ML VIAL IV PRN (04:07)
[2021-11-03 05:34] LABS: Basophils # 0.1 10*3/uL (0.0-0.2); Basophils % 0.3 % (0.0-0.8); Hematocrit 32.2 VOL% (42.0-52.0); Hemoglobin 9.9 GM/DL (14.0-18.0); Immature Granulocytes Absolute 2.45 #; Lymphocytes # 1.6 10*3/uL (1.4-4.0); Lymphocytes % 10.8 % (21.2-54.2); Mean Corpuscular HGB Conc 30.7 GM/DL (32-36); Mean Corpuscular Volume 93.6 FL (87-102); Mean Platelet Volume 10.4 FL (9.6-12.0); Monocytes % 9.9 % (1.7-12.7); NRBC # 0.04 10*3/uL; Platelet Count 358 T/CUMM (130-400); Red Blood Count 3.44 MC/CUMM (3.8-5.5); Red Cell Distribution Width 16.7 % (9.3-17.3); White Blood Count 14.4 T/CUMM (4-12)
[2021-11-03 05:57] LABS: Calcium 9.9 MG/DL (8.5-10.1); Osmolality,Calculated 309.7 MOS/KG (273-304)
[2021-11-03 06:11] LABS: Band Neutrophils 2 % (0-10); Hypochromia Slight; Lymphocytes 18 % (20-55); Nucleated Red Blood Cells 1 (0-5); Platelet Estimate Normal; Segmented Neutrophils 70 % (50-85)
[2021-11-03] MEDS: HEPARIN 5,000 UNIT/1 ML VIAL SUBCUT SCH (06:11)
[2021-11-03 06:12] LABS: Total Cells Counted 100
[2021-11-03] MEDS: metOLazone 2.5 MG TABLET PO SCH (09:40)
[2021-11-03] MEDS: MULTIVITAMIN (BEROCCA) TABLET PO SCH (09:40)
[2021-11-03] MEDS: CHOLECALCIFEROL 1,000 UNIT TABLET PO SCH (09:40)
[2021-11-03] MEDS: ZINC GLUCONATE 50 MG TABLET PO SCH (09:40)
[2021-11-03] MEDS: cloNIDine 0.1 MG TABLET PO SCH (09:40)
[2021-11-03] MEDS: SEVELAMER CARBONATE 800 MG TABLET PO SCH ×2 (09:40→12:05)
[2021-11-03] MEDS: FAMOTIDINE 20 MG TABLET PO SCH (09:41)
[2021-11-03] MEDS: BENZONATATE 100 MG CAPSULE PO SCH (09:41)
[2021-11-03] MEDS: ASCORBIC ACID 500 MG TABLET PO SCH (09:41)
[2021-11-03] MEDS: carvediloL 6.25 MG TABLET PO SCH (09:41)
[2021-11-03] MEDS: DEXAMETHASONE 4 MG TABLET PO SCH (09:41)
[2021-11-03] MEDS: CETIRIZINE 10 MG TABLET PO SCH (09:41)
[2021-11-03] MEDS: AZITHROMYCIN INJ 500 MG in SODIUM CHLORIDE 0.9% 250 ML IV SCH (09:42)
[2021-11-03] MEDS: cefTRIAXone 1,000 MG in SODIUM CHLORIDE 0.9% 100 ML IV SCH (11:33)
[2021-11-03 11:37] VITALS: BP 157/100
== END 2021-11-03 13:25 | disposition home or self-care (01) | DRG 177 ==
LOC: N.ED 12:38 → SUATTDRO 14:53 → N.EDINP 14:53 → N.CC 19:29
PROVIDERS: ADMIT Internal Medicine Geriatric Medicine; ATTEND Internal Medicine

== ENCOUNTER 2022-01-22 05:49 | Observation (INO) ==
[2022-01-22] MEDS ORDERED: ceFAZolin 1,000 MG VIAL ONE (05:51)
[2022-01-22] MEDS: SODIUM CHLORIDE 0.9% 250 ML IV SCH (06:20)
[2022-01-22 06:25] LABS: Hematocrit 33.8 VOL% (42.0-52.0)
[2022-01-22] MEDS ORDERED: TISSUE ADHESIVE 1 EACH APPLICATOR TOP ONE (06:34)
[2022-01-22] MEDS ORDERED: BUPIVACAINE MPF 0.25% 30 ML VIAL ONE (06:34)
[2022-01-22] MEDS ORDERED: LIDOCAINE 1%/EPI INJ 20 ML VIAL ONE (06:34)
[2022-01-22 06:39] LABS: Calcium 9.8 MG/DL (8.5-10.1); Potassium 3.8 MMOL/L (3.5-5.1)
[2022-01-22] MEDS ORDERED: FAMOTIDINE 20 MG TABLET PO ONE (06:45)
[2022-01-22] MEDS ORDERED: ROCURONIUM 50 MG/5 ML VIAL IV ONE ×2 (06:47→09:08)
[2022-01-22] MEDS ORDERED: MIDAZOLAM 2 MG/2 ML VIAL ONE (06:47)
[2022-01-22] MEDS ORDERED: SUCCINYLCHOLINE 200 MG/10 ML VIAL ONE (06:47)
[2022-01-22] MEDS ORDERED: LIDOCAINE 2% 5 ML VIAL ONE (06:47)
[2022-01-22] MEDS ORDERED: fentaNYL 100 MCG/2 ML VIAL ONE ×2 (06:47→07:46)
[2022-01-22] MEDS ORDERED: propofoL 200 MG/20 ML VIAL IV ONE (06:47)
[2022-01-22] MEDS ORDERED: ONDANSETRON 4 MG/2 ML VIAL ONE (08:09)
[2022-01-22] MEDS ORDERED: SODIUM CHLORIDE 0.9% 250 ML IV ONE (08:10)
[2022-01-22] MEDS ORDERED: GLYCOPYRROLATE 0.4 MG/2 ML VIAL ONE (08:11)
[2022-01-22] MEDS ORDERED: NEOSTIGMINE 10 MG/10 ML VIAL ONE (08:12)
[2022-01-22] MEDS ORDERED: ESMOLOL 100 MG/10 ML VIAL IV ONE (09:04)
[2022-01-22] MEDS ORDERED: LABETALOL 20 MG/4 ML SYRINGE IV ONE (10:09)
[2022-01-22] MEDS ORDERED: SEVOFLURANE 1 UNIT/15 MINUTE INH ONE (10:30)
[2022-01-22] MEDS ORDERED: ONDANSETRON 4 MG/2 ML VIAL IV PRN ×2 (10:47→11:14)
[2022-01-22] MEDS ORDERED: ACETAMINOPHEN 325 MG TABLET PO PRN (10:47)
[2022-01-22] MEDS ORDERED: HYDROmorphone 1 MG/1 ML SYRINGE IV PRN (11:14)
[2022-01-22 11:36] LABS: Calcium 9.2 MG/DL (8.5-10.1); Osmolality,Calculated 289.7 MOS/KG (273-304); Potassium 3.7 MMOL/L (3.5-5.1)
[2022-01-22] MEDS: HYDROmorphone 1 MG/1 ML SYRINGE IV PRN ×2 (15:37→22:21)
[2022-01-22] MEDS: CALCIUM CARBONATE CHEW 500 MG TABLET PO SCH ×4 (18:34→22:21)
[2022-01-22] MEDS: DEXTROSE 5% LACTATED RINGERS 1,000 ML IV SCH (23:10)
[2022-01-23] MEDS: CALCIUM CARBONATE CHEW 500 MG TABLET PO SCH ×5 (03:16→19:26)
[2022-01-23] MEDS: HYDROmorphone 1 MG/1 ML SYRINGE IV PRN (03:16)
[2022-01-23 05:41] LABS: Calcium 8.4 MG/DL (8.5-10.1)
[2022-01-23] MEDS: SODIUM CHLORIDE 0.9% 250 ML IV SCH (07:22)
[2022-01-23] MEDS: PANTOPRAZOLE 40 MG TABLET PO SCH (09:17)
[2022-01-23] MEDS: DEXTROSE 5% LACTATED RINGERS 1,000 ML IV SCH ×3 (11:45→19:03)
[2022-01-24] MEDS: CALCIUM CARBONATE CHEW 500 MG TABLET PO SCH ×6 (00:23→21:35)
[2022-01-24 08:02] LABS: Calcium 8.5 MG/DL (8.5-10.1); Osmolality,Calculated 281.1 MOS/KG (273-304); Potassium 4.3 MMOL/L (3.5-5.1)
[2022-01-24] MEDS: PANTOPRAZOLE 40 MG TABLET PO SCH (08:48)
[2022-01-24] MEDS: HYDROmorphone 1 MG/1 ML SYRINGE IV PRN (12:40)
[2022-01-24] MEDS ORDERED: CALCIUM CARBONATE CHEW 500 MG TABLET PO ONE (15:48)
[2022-01-24] MEDS ORDERED: diphenhydrAMINE CAP 50 MG CAPSULE PO PRN (15:49)
[2022-01-25] MEDS: CALCIUM CARBONATE CHEW 500 MG TABLET PO SCH ×6 (00:15→17:25)
[2022-01-25 05:50] LABS: Calcium 7.9 MG/DL (8.5-10.1); Osmolality,Calculated 281.2 MOS/KG (273-304); Potassium 4.1 MMOL/L (3.5-5.1)
[2022-01-25] MEDS: DEXTROSE 5% LACTATED RINGERS 1,000 ML IV SCH (07:57)
[2022-01-25] MEDS: PANTOPRAZOLE 40 MG TABLET PO SCH (08:44)
[2022-01-25 15:38] VITALS: BP 152/87
== END 2022-01-25 19:07 | disposition home or self-care (01) ==
LOC: N.5E 05:49 → N.OR 05:49 → N.SDSINP 05:50 → N.5E 17:32
PROVIDERS: ADMIT Student in an Organized Health Care Education/Training Program; ATTEND Student in an Organized Health Care Education/Training Program

== ENCOUNTER 2022-04-25 09:45 | Inpatient (IN) ==
[2022-04-25] MEDS ORDERED: ACETAMINOPHEN 500 MG TABLET PO STA (11:22)
[2022-04-25] MEDS ORDERED: ONDANSETRON ODT 4 MG TABLET PO STA (11:23)
[2022-04-25] MEDS ORDERED: ONDANSETRON 4 MG/2 ML VIAL IM STA (11:27)
[2022-04-25] MEDS ORDERED: ONDANSETRON 4 MG/2 ML VIAL ONE (11:28)
[2022-04-25] MEDS ORDERED: KETOROLAC 60 MG/2 ML VIAL IM ONE (12:20)
[2022-04-25] MEDS ORDERED: PROMETHAZINE 25 MG/1 ML VIAL IM STA (12:21)
[2022-04-25] MEDS ORDERED: HYDROmorphone 1 MG/1 ML SYRINGE IV STA (13:51)
[2022-04-25] MEDS ORDERED: ONDANSETRON 4 MG/2 ML VIAL IV STA (13:52)
[2022-04-25 14:19] LABS: Basophils % 0.3 % (0.0-0.8); Eosinophils % 0.1 % (0.00-10.9); Hematocrit 35.8 VOL% (42.0-52.0); Hemoglobin 11.5 GM/DL (14.0-18.0); Immature Granulocytes % 2.4 %; Immature Granulocytes Absolute 0.35 #; Lymphocytes # 0.8 10*3/uL (1.4-4.0); Lymphocytes % 5.5 % (21.2-54.2); Mean Corpuscular HGB Conc 32.1 GM/DL (32-36); Mean Corpuscular Volume 95.7 FL (87-102); Mean Platelet Volume 10.2 FL (9.6-12.0); Monocytes # 0.5 10*3/uL (0.11-0.8); Monocytes % 3.1 % (1.7-12.7); NRBC # 0.03 10*3/uL; Neutrophils % 88.6 % (38.7-73.9); Platelet Count 256 T/CUMM (130-400); Red Blood Count 3.74 MC/CUMM (3.8-5.5); Red Cell Distribution Width 18.6 % (9.3-17.3); White Blood Count 14.4 T/CUMM (4-12)
[2022-04-25 14:30] LABS: Alanine Aminotransferase 17 U/L (16-61); Albumin 3.9 G/DL (3.4-5.0); Alkaline Phosphatase 56 U/L (45-117); Aspartate Amino Transferase 12 U/L (0-37); Blood Urea Nitrogen 56 MG/DL (7-18); Calcium 8.8 MG/DL (8.5-10.1); Carbon Dioxide 31 MMOL/L (21-32); Chloride 88 MMOL/L (98-107); Glucose 111 MG/DL (74-106); Osmolality,Calculated 276.8 MOS/KG (273-304); Potassium 5.3 MMOL/L (3.5-5.1); Sodium 130 MMOL/L (136-145); Total Protein 9.6 G/DL (6.4-8.2)
[2022-04-25] MEDS ORDERED: hydrALAZINE 20 MG/1 ML VIAL IV PRN (15:43)
[2022-04-25] MEDS ORDERED: GLUCAGON 1 MG VIAL IM PRN (15:43)
[2022-04-25] MEDS ORDERED: DEXTROSE 10% 250 ML BAG IV PRN (15:50)
[2022-04-25] MEDS: SODIUM CHLORIDE 0.9% 1,000 ML IV SCH (16:19)
[2022-04-25] MEDS: INSULIN LISPRO 100 UNIT/ML SUBCUT SCH ×2 (16:40→21:00)
[2022-04-25 17:05] LABS: Phosphorous 2.9 MG/DL (2.5-4.9)
[2022-04-25] MEDS: MORPHINE 2 MG/1 ML SYRINGE IV PRN ×2 (17:59→22:04)
[2022-04-25] MEDS: HEPARIN 5,000 UNIT/1 ML VIAL SUBCUT SCH (20:53)
[2022-04-26] MEDS: SODIUM CHLORIDE 0.9% 1,000 ML IV SCH ×2 (05:14→16:35)
[2022-04-26] MEDS: MORPHINE 2 MG/1 ML SYRINGE IV PRN (05:16)
[2022-04-26 05:17] LABS: Basophils % 0.1 % (0.0-0.8); Eosinophils # 0.1 10*3/uL (0.0-0.87); Eosinophils % 0.9 % (0.00-10.9); Hematocrit 30.7 VOL% (42.0-52.0); Hemoglobin 9.8 GM/DL (14.0-18.0); Immature Granulocytes % 1.6 %; Immature Granulocytes Absolute 0.22 #; Lymphocytes # 0.9 10*3/uL (1.4-4.0); Lymphocytes % 6.6 % (21.2-54.2); Mean Corpuscular HGB Conc 31.9 GM/DL (32-36); Mean Corpuscular Volume 94.8 FL (87-102); Mean Platelet Volume 10.6 FL (9.6-12.0); Monocytes # 1.6 10*3/uL (0.11-0.8); Monocytes % 11.7 % (1.7-12.7); Neutrophils % 79.1 % (38.7-73.9); Platelet Count 172 T/CUMM (130-400); Red Blood Count 3.24 MC/CUMM (3.8-5.5); Red Cell Distribution Width 18.2 % (9.3-17.3); White Blood Count 13.5 T/CUMM (4-12)
[2022-04-26 05:40] LABS: Calcium 7.7 MG/DL (8.5-10.1); Osmolality,Calculated 282.8 MOS/KG (273-304); Potassium 5.8 MMOL/L (3.5-5.1)
[2022-04-26] MEDS: INSULIN LISPRO 100 UNIT/ML SUBCUT SCH ×2 (08:33→18:33)
[2022-04-26] MEDS: ONDANSETRON 4 MG/2 ML VIAL IV PRN ×3 (09:49→20:58)
[2022-04-26] MEDS ORDERED: SEVELAMER CARBONATE 800 MG TABLET PO SCH (10:00)
[2022-04-26] MEDS: PANTOPRAZOLE 40 MG TABLET PO SCH (10:47)
[2022-04-26] MEDS: CALCIUM (CARBONATE)/VITAMIN D 600 MG-400 UNIT TABLET PO SCH (10:56)
[2022-04-26] MEDS: HEPARIN 5,000 UNIT/1 ML VIAL SUBCUT SCH ×2 (10:56→21:02)
[2022-04-26 11:40] LABS: Bilirubin,Urine Negative (Negative); Blood, Urine Large mg/dL (Negative); Glucose,Urine (UA) Negative (Negative); Ketones,Urine Negative (Negative); Nitrite,Urine Positive (Negative); Protein,Urine >=300 mg/dL (Negative); Urine Appearance Turbid (Clear); Urine Color Yellow (Yellow); Urine Specific Gravity > 1.030 (1.001-1.035); Urine Urobilinogen 0.2 eU/dL (<2.0); Urine pH 7.5 (4.5-8.0)
[2022-04-26 11:42] LABS: Bacteria,Urine Many /HPF (Few); Mucus,Urine Many /LPF (Occasional); RBC,Urine 38 /HPF (0-4)
[2022-04-26] MEDS ORDERED: cefTRIAXone 1,000 MG in SODIUM CHLORIDE 0.9% 100 ML IV SCH (14:00)
[2022-04-26] MEDS ORDERED: LEVOFLOXACIN INJ 750 MG/150 ML PREMIX IV ONE (14:00)
[2022-04-26] MEDS: carvediloL 6.25 MG TABLET PO SCH ×2 (14:19→18:10)
[2022-04-26 14:20] LABS: Barbiturates Screen,Urine Negative (Negative); Benzodiazepines Screen,Urine Negative (Negative); Cannabinoid Screen,Urine Negative (Negative); Opiate Screen,Urine Negative (Negative); Phencyclidine Screen,Urine Negative (Negative)
[2022-04-26] MEDS: ACETAMINOPHEN 325 MG TABLET PO PRN (16:14)
[2022-04-26] MEDS: POLYETHYLENE GLYCOL POWDER 17 GM PACK PO SCH (16:42)
[2022-04-26] MEDS: SIMVASTATIN 20 MG TABLET PO SCH (21:00)
[2022-04-26] MEDS: ASCORBIC ACID 500 MG TABLET PO SCH (21:00)
[2022-04-27] MEDS: ONDANSETRON 4 MG/2 ML VIAL IV PRN (00:40)
[2022-04-27] MEDS: ACETAMINOPHEN 325 MG TABLET PO PRN ×3 (02:18→19:51)
[2022-04-27] MEDS: SODIUM CHLORIDE 0.9% 1,000 ML IV SCH ×2 (04:43→21:49)
[2022-04-27 04:53] LABS: Basophils % 0.2 % (0.0-0.8); Eosinophils # 0.1 10*3/uL (0.0-0.87); Eosinophils % 0.7 % (0.00-10.9); Hematocrit 29.9 VOL% (42.0-52.0); Hemoglobin 9.4 GM/DL (14.0-18.0); Immature Granulocytes % 2.3 %; Immature Granulocytes Absolute 0.28 #; Lymphocytes % 8.1 % (21.2-54.2); Mean Corpuscular HGB Conc 31.4 GM/DL (32-36); Mean Corpuscular Volume 96.1 FL (87-102); Mean Platelet Volume 10.7 FL (9.6-12.0); Monocytes # 1.8 10*3/uL (0.11-0.8); Monocytes % 14.4 % (1.7-12.7); Neutrophils % 74.3 % (38.7-73.9); Platelet Count 176 T/CUMM (130-400); Red Blood Count 3.11 MC/CUMM (3.8-5.5); Red Cell Distribution Width 17.8 % (9.3-17.3); White Blood Count 12.2 T/CUMM (4-12)
[2022-04-27 05:14] LABS: Calcium 7.6 MG/DL (8.5-10.1); Osmolality,Calculated 286.9 MOS/KG (273-304); Potassium 5.8 MMOL/L (3.5-5.1)
[2022-04-27] MEDS ORDERED: EPOETIN ALFA-EPBX 4,000 UNIT/ML VIAL IV PRN (10:28)
[2022-04-27] MEDS: CALCIUM (CARBONATE)/VITAMIN D 600 MG-400 UNIT TABLET PO SCH (12:57)
[2022-04-27] MEDS: ZINC GLUCONATE 50 MG TABLET PO SCH (12:58)
[2022-04-27] MEDS: HEPARIN 5,000 UNIT/1 ML VIAL SUBCUT SCH ×2 (12:58→20:01)
[2022-04-27] MEDS: ASCORBIC ACID 500 MG TABLET PO SCH ×2 (12:58→20:01)
[2022-04-27] MEDS: carvediloL 6.25 MG TABLET PO SCH ×2 (12:58→16:40)
[2022-04-27] MEDS: PANTOPRAZOLE 40 MG TABLET PO SCH (12:59)
[2022-04-27] MEDS: SEVELAMER CARBONATE 800 MG TABLET PO SCH ×2 (12:59→16:40)
[2022-04-27] MEDS: metOLazone 2.5 MG TABLET PO SCH (12:59)
[2022-04-27] MEDS: POLYETHYLENE GLYCOL POWDER 17 GM PACK PO SCH (12:59)
[2022-04-27] MEDS: cloNIDine 0.1 MG TABLET PO SCH (13:00)
[2022-04-27] MEDS: LEVOFLOXACIN INJ 250 MG/50 ML PREMIX IV SCH (16:40)
[2022-04-27] MEDS: SIMVASTATIN 20 MG TABLET PO SCH (20:00)
[2022-04-27] MEDS: MELATONIN 3 MG TABLET PO PRN (22:03)
[2022-04-28] MEDS: ACETAMINOPHEN 325 MG TABLET PO PRN ×5 (02:36→22:07)
[2022-04-28] MEDS: ZINC GLUCONATE 50 MG TABLET PO SCH (08:30)
[2022-04-28] MEDS: CALCIUM (CARBONATE)/VITAMIN D 600 MG-400 UNIT TABLET PO SCH (08:31)
[2022-04-28] MEDS: SEVELAMER CARBONATE 800 MG TABLET PO SCH ×3 (08:32→17:15)
[2022-04-28] MEDS: metOLazone 2.5 MG TABLET PO SCH (08:32)
[2022-04-28] MEDS: ASCORBIC ACID 500 MG TABLET PO SCH ×2 (08:32→22:06)
[2022-04-28] MEDS: cloNIDine 0.1 MG TABLET PO SCH (08:33)
[2022-04-28] MEDS: PANTOPRAZOLE 40 MG TABLET PO SCH (08:33)
[2022-04-28] MEDS: POLYETHYLENE GLYCOL POWDER 17 GM PACK PO SCH (08:33)
[2022-04-28] MEDS: carvediloL 6.25 MG TABLET PO SCH ×2 (08:34→17:10)
[2022-04-28] MEDS: HEPARIN 5,000 UNIT/1 ML VIAL SUBCUT SCH ×2 (08:34→22:05)
[2022-04-28] MEDS: SODIUM CHLORIDE 0.9% 1,000 ML IV SCH (14:11)
[2022-04-28] MEDS: LEVOFLOXACIN INJ 250 MG/50 ML PREMIX IV SCH (17:15)
[2022-04-28] MEDS: MELATONIN 3 MG TABLET PO PRN (22:05)
[2022-04-28] MEDS: SIMVASTATIN 20 MG TABLET PO SCH (22:06)
[2022-04-29] MEDS: ACETAMINOPHEN 325 MG TABLET PO PRN ×4 (04:26→22:37)
[2022-04-29] MEDS: SODIUM CHLORIDE 0.9% 1,000 ML IV SCH ×2 (09:16→22:40)
[2022-04-29] MEDS: carvediloL 6.25 MG TABLET PO SCH (09:16)
[2022-04-29] MEDS: ASCORBIC ACID 500 MG TABLET PO SCH ×2 (09:17→22:37)
[2022-04-29] MEDS: SEVELAMER CARBONATE 800 MG TABLET PO SCH ×3 (09:17→16:30)
[2022-04-29] MEDS: CALCIUM (CARBONATE)/VITAMIN D 600 MG-400 UNIT TABLET PO SCH (09:17)
[2022-04-29] MEDS: PANTOPRAZOLE 40 MG TABLET PO SCH (09:18)
[2022-04-29] MEDS: metOLazone 2.5 MG TABLET PO SCH (09:18)
[2022-04-29] MEDS: cloNIDine 0.1 MG TABLET PO SCH (09:18)
[2022-04-29] MEDS: ZINC GLUCONATE 50 MG TABLET PO SCH (09:21)
[2022-04-29] MEDS: POLYETHYLENE GLYCOL POWDER 17 GM PACK PO SCH (09:21)
[2022-04-29] MEDS: HEPARIN 5,000 UNIT/1 ML VIAL SUBCUT SCH ×2 (09:27→22:37)
[2022-04-29] MEDS: LEVOFLOXACIN INJ 250 MG/50 ML PREMIX IV SCH (16:30)
[2022-04-29] MEDS: MELATONIN 3 MG TABLET PO PRN (22:36)
[2022-04-29] MEDS: SIMVASTATIN 20 MG TABLET PO SCH (22:37)
[2022-04-30] MEDS: HEPARIN 5,000 UNIT/1 ML VIAL SUBCUT SCH ×2 (09:18→21:28)
[2022-04-30] MEDS: ACETAMINOPHEN 325 MG TABLET PO PRN ×2 (09:18→19:00)
[2022-04-30] MEDS: ZINC GLUCONATE 50 MG TABLET PO SCH (09:18)
[2022-04-30] MEDS: SEVELAMER CARBONATE 800 MG TABLET PO SCH ×3 (09:20→17:20)
[2022-04-30] MEDS: PANTOPRAZOLE 40 MG TABLET PO SCH (09:22)
[2022-04-30] MEDS: CALCIUM (CARBONATE)/VITAMIN D 600 MG-400 UNIT TABLET PO SCH (09:22)
[2022-04-30] MEDS: POLYETHYLENE GLYCOL POWDER 17 GM PACK PO SCH (09:22)
[2022-04-30] MEDS: ASCORBIC ACID 500 MG TABLET PO SCH ×2 (09:22→21:25)
[2022-04-30] MEDS ORDERED: BISACODYL 5 MG TABLET PO ONE (10:22)
[2022-04-30] MEDS: ONDANSETRON 4 MG/2 ML VIAL IV PRN ×2 (10:33→15:52)
[2022-04-30] MEDS: LEVOFLOXACIN INJ 250 MG/50 ML PREMIX IV SCH (17:19)
[2022-04-30 20:54] LABS: Calcium 7.2 MG/DL (8.5-10.1); Osmolality,Calculated 293.4 MOS/KG (273-304); Potassium 4.7 MMOL/L (3.5-5.1)
[2022-04-30] MEDS: SIMVASTATIN 20 MG TABLET PO SCH (21:25)
[2022-04-30] MEDS: METHOCARBAMOL 500 MG TABLET PO PRN (21:25)
[2022-04-30] MEDS: TAMSULOSIN 0.4 MG CAPSULE PO SCH (21:26)
[2022-05-01] MEDS: ACETAMINOPHEN 325 MG TABLET PO PRN (00:18)
[2022-05-01] MEDS: ONDANSETRON 4 MG/2 ML VIAL IV PRN ×3 (02:21→16:20)
[2022-05-01 04:40] LABS: Basophils % 0.2 % (0.0-0.8); Eosinophils # 0.1 10*3/uL (0.0-0.87); Eosinophils % 0.5 % (0.00-10.9); Hematocrit 25.3 VOL% (42.0-52.0); Hemoglobin 7.8 GM/DL (14.0-18.0); Immature Granulocytes % 8.7 %; Immature Granulocytes Absolute 1.47 #; Lymphocytes # 1.2 10*3/uL (1.4-4.0); Mean Corpuscular HGB Conc 30.8 GM/DL (32-36); Mean Corpuscular Volume 95.8 FL (87-102); Mean Platelet Volume 10.5 FL (9.6-12.0); Monocytes # 1.1 10*3/uL (0.11-0.8); Monocytes % 6.5 % (1.7-12.7); Neutrophils % 77.1 % (38.7-73.9); Platelet Count 205 T/CUMM (130-400); Red Blood Count 2.64 MC/CUMM (3.8-5.5); Red Cell Distribution Width 17.3 % (9.3-17.3); White Blood Count 16.8 T/CUMM (4-12)
[2022-05-01 05:02] LABS: Band Neutrophils 4 % (0-10); Eosinophils 1 % (0-10); Hypochromia Slight; Lymphocytes 5 % (20-55); Myelocytes 1 %; Total Cells Counted 100
[2022-05-01 05:03] LABS: Macrocytosis Slight; Platelet Estimate Normal
[2022-05-01 05:05] LABS: Calcium 6.8 MG/DL (8.5-10.1); Potassium 5.3 MMOL/L (3.5-5.1)
[2022-05-01] MEDS: ZINC GLUCONATE 50 MG TABLET PO SCH (12:11)
[2022-05-01] MEDS: SEVELAMER CARBONATE 800 MG TABLET PO SCH ×3 (12:11→18:23)
[2022-05-01] MEDS: CALCIUM (CARBONATE)/VITAMIN D 600 MG-400 UNIT TABLET PO SCH (12:11)
[2022-05-01] MEDS: PANTOPRAZOLE 40 MG TABLET PO SCH (12:11)
[2022-05-01] MEDS: ASCORBIC ACID 500 MG TABLET PO SCH ×2 (12:11→21:55)
[2022-05-01] MEDS: POLYETHYLENE GLYCOL POWDER 17 GM PACK PO SCH (13:11)
[2022-05-01] MEDS: HEPARIN 5,000 UNIT/1 ML VIAL SUBCUT SCH ×2 (13:11→21:58)
[2022-05-01] MEDS: METHOCARBAMOL 500 MG TABLET PO PRN (16:13)
[2022-05-01] MEDS ORDERED: LEVOFLOXACIN INJ 500 MG/100 ML PREMIX IV SCH (17:00)
[2022-05-01] MEDS: TAMSULOSIN 0.4 MG CAPSULE PO SCH (21:54)
[2022-05-01] MEDS: SIMVASTATIN 20 MG TABLET PO SCH (21:54)
[2022-05-02] MEDS: ONDANSETRON 4 MG/2 ML VIAL IV PRN ×2 (02:36→18:44)
[2022-05-02] MEDS: ACETAMINOPHEN 325 MG TABLET PO PRN (03:28)
[2022-05-02 08:53] LABS: Basophils % 0.1 % (0.0-0.8); Eosinophils # 0.2 10*3/uL (0.0-0.87); Eosinophils % 1.4 % (0.00-10.9); Hematocrit 27.1 VOL% (42.0-52.0); Hemoglobin 8.4 GM/DL (14.0-18.0); Immature Granulocytes % 9.7 %; Immature Granulocytes Absolute 1.32 #; Lymphocytes # 1.2 10*3/uL (1.4-4.0); Lymphocytes % 9.1 % (21.2-54.2); Mean Corpuscular Volume 95.4 FL (87-102); Mean Platelet Volume 10.1 FL (9.6-12.0); Monocytes # 0.7 10*3/uL (0.11-0.8); Monocytes % 5.5 % (1.7-12.7); Neutrophils % 74.2 % (38.7-73.9); Platelet Count 240 T/CUMM (130-400); Red Blood Count 2.84 MC/CUMM (3.8-5.5); Red Cell Distribution Width 17.4 % (9.3-17.3); White Blood Count 13.6 T/CUMM (4-12)
[2022-05-02] MEDS: ASCORBIC ACID 500 MG TABLET PO SCH ×2 (09:01→20:17)
[2022-05-02] MEDS: PANTOPRAZOLE 40 MG TABLET PO SCH (09:01)
[2022-05-02] MEDS: SEVELAMER CARBONATE 800 MG TABLET PO SCH ×3 (09:01→17:03)
[2022-05-02] MEDS: ZINC GLUCONATE 50 MG TABLET PO SCH (09:01)
[2022-05-02] MEDS: CALCIUM (CARBONATE)/VITAMIN D 600 MG-400 UNIT TABLET PO SCH (09:01)
[2022-05-02] MEDS: POLYETHYLENE GLYCOL POWDER 17 GM PACK PO SCH (09:03)
[2022-05-02] MEDS: HEPARIN 5,000 UNIT/1 ML VIAL SUBCUT SCH ×2 (09:05→20:17)
[2022-05-02 09:10] LABS: Calcium 7.7 MG/DL (8.5-10.1); Osmolality,Calculated 288.1 MOS/KG (273-304); Potassium 4.3 MMOL/L (3.5-5.1)
[2022-05-02 09:14] LABS: Band Neutrophils 2 % (0-10); Eosinophils 3 % (0-10); Hypochromia Slight; Lymphocytes 11 % (20-55); Total Cells Counted 100
[2022-05-02 09:15] LABS: Macrocytosis Slight; Platelet Estimate Adequate
[2022-05-02] MEDS: MELATONIN 3 MG TABLET PO PRN (20:17)
[2022-05-02] MEDS: TAMSULOSIN 0.4 MG CAPSULE PO SCH (20:17)
[2022-05-02] MEDS: SIMVASTATIN 20 MG TABLET PO SCH (20:17)
[2022-05-03] MEDS: ACETAMINOPHEN 325 MG TABLET PO PRN ×3 (04:26→18:29)
[2022-05-03 06:05] LABS: Basophils % 0.2 % (0.0-0.8); Eosinophils # 0.2 10*3/uL (0.0-0.87); Eosinophils % 1.6 % (0.00-10.9); Hematocrit 24.2 VOL% (42.0-52.0); Hemoglobin 7.7 GM/DL (14.0-18.0); Immature Granulocytes % 8.7 %; Immature Granulocytes Absolute 1.27 #; Lymphocytes # 1.6 10*3/uL (1.4-4.0); Lymphocytes % 10.9 % (21.2-54.2); Mean Corpuscular HGB Conc 31.8 GM/DL (32-36); Mean Platelet Volume 10.2 FL (9.6-12.0); Monocytes # 1.2 10*3/uL (0.11-0.8); Monocytes % 8.5 % (1.7-12.7); Neutrophils % 70.1 % (38.7-73.9); Platelet Count 282 T/CUMM (130-400); Red Blood Count 2.52 MC/CUMM (3.8-5.5); Red Cell Distribution Width 17.2 % (9.3-17.3); White Blood Count 14.6 T/CUMM (4-12)
[2022-05-03 06:16] LABS: Calcium 7.1 MG/DL (8.5-10.1); Osmolality,Calculated 291.2 MOS/KG (273-304)
[2022-05-03 06:35] LABS: Band Neutrophils 1 % (0-10); Eosinophils 1 % (0-10); Hypochromia Slight; Lymphocytes 15 % (20-55); Microcytosis Slight; Platelet Estimate Adequate; Total Cells Counted 100
[2022-05-03] MEDS: SEVELAMER CARBONATE 800 MG TABLET PO SCH ×3 (08:11→17:06)
[2022-05-03] MEDS: ASCORBIC ACID 500 MG TABLET PO SCH ×2 (13:01→21:58)
[2022-05-03] MEDS: CALCIUM (CARBONATE)/VITAMIN D 600 MG-400 UNIT TABLET PO SCH (13:01)
[2022-05-03] MEDS: ZINC GLUCONATE 50 MG TABLET PO SCH (13:01)
[2022-05-03] MEDS: POLYETHYLENE GLYCOL POWDER 17 GM PACK PO SCH (13:24)
[2022-05-03] MEDS: PANTOPRAZOLE 40 MG TABLET PO SCH (13:24)
[2022-05-03] MEDS: HEPARIN 5,000 UNIT/1 ML VIAL SUBCUT SCH (14:25)
[2022-05-03] MEDS ORDERED: FAMOTIDINE 20 MG TABLET PO SCH (21:00)
[2022-05-03] MEDS: PANTOPRAZOLE 40 MG VIAL IV SCH (21:58)
[2022-05-03] MEDS: SIMVASTATIN 20 MG TABLET PO SCH (21:59)
[2022-05-03] MEDS: MELATONIN 3 MG TABLET PO PRN (21:59)
[2022-05-03] MEDS: TAMSULOSIN 0.4 MG CAPSULE PO SCH (21:59)
[2022-05-04 06:02] LABS: Basophils % 0.2 % (0.0-0.8); Eosinophils # 0.2 10*3/uL (0.0-0.87); Eosinophils % 1.6 % (0.00-10.9); Hematocrit 25.6 VOL% (42.0-52.0); Hemoglobin 7.9 GM/DL (14.0-18.0); Immature Granulocytes % 10.3 %; Immature Granulocytes Absolute 1.32 #; Lymphocytes # 1.5 10*3/uL (1.4-4.0); Lymphocytes % 11.4 % (21.2-54.2); Mean Corpuscular HGB Conc 30.9 GM/DL (32-36); Mean Corpuscular Volume 96.2 FL (87-102); Mean Platelet Volume 10.1 FL (9.6-12.0); Monocytes % 7.6 % (1.7-12.7); Neutrophils % 68.9 % (38.7-73.9); Platelet Count 310 T/CUMM (130-400); Red Blood Count 2.66 MC/CUMM (3.8-5.5); Red Cell Distribution Width 16.8 % (9.3-17.3); White Blood Count 12.8 T/CUMM (4-12)
[2022-05-04 06:10] LABS: Calcium 7.4 MG/DL (8.5-10.1); Osmolality,Calculated 287.7 MOS/KG (273-304); Potassium 4.7 MMOL/L (3.5-5.1)
[2022-05-04 06:27] LABS: Band Neutrophils 4 % (0-10); Eosinophils 2 % (0-10); Hypochromia Slight; Lymphocytes 9 % (20-55); Platelet Estimate Adequate; Total Cells Counted 100
[2022-05-04] MEDS: SODIUM CHLORIDE 0.9% 500 ML IV SCH (08:04)
[2022-05-04] MEDS ORDERED: LIDOCAINE 2% 5 ML VIAL ONE (09:52)
[2022-05-04] MEDS ORDERED: propofoL 200 MG/20 ML VIAL IV ONE ×2 (09:52→10:10)
[2022-05-04] MEDS ORDERED: ONDANSETRON 4 MG/2 ML VIAL ONE (09:52)
[2022-05-04] MEDS: ASCORBIC ACID 500 MG TABLET PO SCH ×2 (11:18→22:36)
[2022-05-04] MEDS: ZINC GLUCONATE 50 MG TABLET PO SCH (11:18)
[2022-05-04] MEDS: CALCIUM (CARBONATE)/VITAMIN D 600 MG-400 UNIT TABLET PO SCH (11:18)
[2022-05-04] MEDS: SEVELAMER CARBONATE 800 MG TABLET PO SCH ×3 (11:18→17:12)
[2022-05-04] MEDS: PANTOPRAZOLE 40 MG VIAL IV SCH ×2 (11:22→22:38)
[2022-05-04] MEDS: METHOCARBAMOL 500 MG TABLET PO PRN (22:37)
[2022-05-04] MEDS: MELATONIN 3 MG TABLET PO PRN (22:37)
[2022-05-04] MEDS: SIMVASTATIN 20 MG TABLET PO SCH (22:37)
[2022-05-04] MEDS: TAMSULOSIN 0.4 MG CAPSULE PO SCH (22:43)
[2022-05-05 06:04] LABS: Basophils % 0.3 % (0.0-0.8); Eosinophils # 0.2 10*3/uL (0.0-0.87); Eosinophils % 1.6 % (0.00-10.9); Hematocrit 23.7 VOL% (42.0-52.0); Hemoglobin 7.4 GM/DL (14.0-18.0); Immature Granulocytes % 9.4 %; Lymphocytes # 1.5 10*3/uL (1.4-4.0); Lymphocytes % 12.6 % (21.2-54.2); Mean Corpuscular HGB Conc 31.2 GM/DL (32-36); Mean Corpuscular Volume 96.3 FL (87-102); Mean Platelet Volume 9.7 FL (9.6-12.0); Monocytes # 0.9 10*3/uL (0.11-0.8); Monocytes % 7.9 % (1.7-12.7); Neutrophils % 68.2 % (38.7-73.9); Platelet Count 330 T/CUMM (130-400); Red Blood Count 2.46 MC/CUMM (3.8-5.5); Red Cell Distribution Width 16.9 % (9.3-17.3); White Blood Count 11.7 T/CUMM (4-12)
[2022-05-05 06:44] LABS: Eosinophils 2 % (0-10); Lymphocytes 20 % (20-55); Platelet Estimate Normal; Total Cells Counted 100
[2022-05-05] MEDS: SODIUM CHLORIDE 0.9% 500 ML IV SCH (08:30)
[2022-05-05 10:05] LABS: Hepatitis B Core IgM Quant < 0.05 Index; Hepatitis B Surface Ag Quant < 0.10 Index; Hepatitis B Surface Ag Result Non-Reactive (NonReactive); Hepatitis C Virus Ab Quant 0.04 Index; Hepatitis C Virus Ab Result Non-Reactive (NonReactive)
[2022-05-05] MEDS: SEVELAMER CARBONATE 800 MG TABLET PO SCH ×3 (10:42→16:35)
[2022-05-05] MEDS: PANTOPRAZOLE 40 MG VIAL IV SCH ×2 (11:39→21:33)
[2022-05-05] MEDS: HEPARIN 5,000 UNIT/1 ML VIAL SUBCUT SCH ×2 (11:39→21:33)
[2022-05-05] MEDS: ASCORBIC ACID 500 MG TABLET PO SCH ×2 (11:39→21:33)
[2022-05-05] MEDS: ZINC GLUCONATE 50 MG TABLET PO SCH (12:58)
[2022-05-05] MEDS: CALCIUM (CARBONATE)/VITAMIN D 600 MG-400 UNIT TABLET PO SCH (12:59)
[2022-05-05] MEDS: ACETAMINOPHEN 325 MG TABLET PO PRN (13:03)
[2022-05-05] MEDS: METHOCARBAMOL 500 MG TABLET PO PRN ×2 (13:03→21:33)
[2022-05-05] MEDS: SIMVASTATIN 20 MG TABLET PO SCH (21:33)
[2022-05-05] MEDS: MELATONIN 3 MG TABLET PO PRN (21:33)
[2022-05-05] MEDS: TAMSULOSIN 0.4 MG CAPSULE PO SCH (21:33)
[2022-05-06 06:06] LABS: Basophils % 0.3 % (0.0-0.8); Eosinophils # 0.1 10*3/uL (0.0-0.87); Eosinophils % 1.2 % (0.00-10.9); Hematocrit 25.3 VOL% (42.0-52.0); Hemoglobin 7.8 GM/DL (14.0-18.0); Immature Granulocytes % 9.1 %; Immature Granulocytes Absolute 1.11 #; Lymphocytes # 1.6 10*3/uL (1.4-4.0); Lymphocytes % 13.4 % (21.2-54.2); Mean Corpuscular HGB Conc 30.8 GM/DL (32-36); Mean Corpuscular Volume 96.6 FL (87-102); Mean Platelet Volume 9.2 FL (9.6-12.0); Monocytes # 0.8 10*3/uL (0.11-0.8); Monocytes % 6.7 % (1.7-12.7); Neutrophils % 69.3 % (38.7-73.9); Platelet Count 382 T/CUMM (130-400); Red Blood Count 2.62 MC/CUMM (3.8-5.5); Red Cell Distribution Width 17.2 % (9.3-17.3); White Blood Count 12.2 T/CUMM (4-12)
[2022-05-06 06:26] LABS: Calcium 8.1 MG/DL (8.5-10.1); Potassium 4.8 MMOL/L (3.5-5.1)
[2022-05-06 08:10] LABS: Eosinophils 2 % (0-10); Lymphocytes 15 % (20-55); Total Cells Counted 100
[2022-05-06 08:15] LABS: Ovalocytes Few; Platelet Estimate Normal; Polychromasia Slight
[2022-05-06] MEDS: HEPARIN 5,000 UNIT/1 ML VIAL SUBCUT SCH (08:25)
[2022-05-06] MEDS: SODIUM CHLORIDE 0.9% 500 ML IV SCH (08:25)
[2022-05-06] MEDS: ASCORBIC ACID 500 MG TABLET PO SCH (08:36)
[2022-05-06] MEDS: PANTOPRAZOLE 40 MG VIAL IV SCH (08:36)
[2022-05-06] MEDS: ZINC GLUCONATE 50 MG TABLET PO SCH (08:36)
[2022-05-06] MEDS: SEVELAMER CARBONATE 800 MG TABLET PO SCH ×2 (08:36→12:16)
[2022-05-06] MEDS: CALCIUM (CARBONATE)/VITAMIN D 600 MG-400 UNIT TABLET PO SCH (08:36)
[2022-05-06 12:20] VITALS: BP 150/88
== END 2022-05-06 14:50 | disposition home or self-care (01) | DRG 689 ==
LOC: N.ED 09:45 → N.EDINP 09:45 → N.5E 18:17 → SUATTDRO 04-26 12:51
PROVIDERS: ADMIT Internal Medicine; ATTEND Internal Medicine